=== PATIENT | female | born 1935 | race Caucasian/White ===

== ENCOUNTER 2016-10-15 14:24 | Inpatient (IN) | payer MEDICARE, OTHER, MEDICAID ==
[~2016-10-15] VITALS: Ht 151.1 cm; Wt 57.4 kg
[~2016-10-15 14:24] MED LIST: AMLO2.5T2; ASP81TEC; CALC600T85; CARV12.5 PO; CLAR10T; FURO20TA PO; LEVO50TA83; LORA-303; MAGN400T; MVI; PRO AIR HFA; QTP25T; QUET400T; TIZA4CAP; ZOC20 PO; [UNRECOGNIZED DRUG - CODE]; [UNRECOGNIZED DRUG - OTHER]; omega 3 fish oil
[2016-10-15 14:28] VITALS: BP 146/53; PULSE 91; RESP 18; O2SAT 98
--- NOTE | 2016-10-15 14:28 | ED.REPORT ---
HPI-Psychiatric Illness Date of Service Oct 15, 2016 ED Provider: Cornelio Schmid MD Patient is a 80 year old female with a history of bipolar disorder who presents to the ED via EMS from [facility] due to increasingly manic behavior for the past 72 hours, with the patient expressing suicidal ideations today. Per the reports of the Gear Milling Machine Set Up Operator at [facility], the patient has been experiencing manic behavior for the past 72 hours, which they describe as "psychotic" with auditory and visual hallucinations. She has demonstrated escalating behaviors requiring 1:1 supervision. She believes another elderly demented male the at the facility is her . Patient has also been making statements about acquiring a gun to kill herself, verbally and physically threatening staff. Staff feel that she is increasing psychotic, a danger to herself and others. They have not been able to determine an organic cause for her behavior. She also has a recent history of pneumonia on antibiotics for the past 2 days. Patient has also had bruising on her head, due to 2x recent falls. Patient is up at night, pacing the halls, with altered sleep patterns. She is refusing medications and food. Patient is uncooperative and unable to provide history. Per POLST, she is DNR with comfort measures only Nursing Notes Stated Complaint: REFUSING MEDICATION Chief Complaint: Psychiatric Complaint Nursing Notes Reviewed: Yes Allergies: Coded Allergies: NSAIDS (Non-Steroidal Anti-Inflamma (Verified Allergy, Unknown, 10/15/16) Penicillins (Verified Allergy, Unknown, 10/15/16) Sulfa (Sulfonamide Antibiotics) (Verified Allergy, Unknown, 10/15/16) Miscellaneous Medications ([omega 3 fish oil]) ([Pro Air Hfa]) INHA ([Resdosis]) DROPS AmLODIPine-Expunged Drug, Do Not Renew! (AmLODIPine-Expunged Drug, Do Not Renew! ) 2.5 Mg Tablet Aspirin-Expunged Drug, Do Not Renew! (Aspirin EC-Expunged Drug, Do Not Renew!) 81 Mg Tablet Calcium Carbonate (Caltrate 600) 600 Mg Tablet Carvedilol-Expunged Drug, Do Not Renew! (Carvedilol-Expunged Drug, Do Not Renew! ) 12.5 Mg Tablet Furosemide-Expunged Drug, Do Not Renew! (Lasix-Expunged Drug, Do Not Renew!) 20 Mg Tablet Levothyroxine-Expunged Drug, Do Not Renew! (Levoxyl-Expunged Drug, Do Not Renew! ) 50 Mcg Tablet Loratadine-Expunged Drug, Do Not Renew! (Loratadine-Expunged Drug, Do Not Renew! ) 10 Mg Tablet Lorazepam-Expunged Drug, Do Not Renew! (Lorazepam-Expunged Drug, Do Not Renew!) 1 Mg Tablet Magnesium Oxide (Magox) 400 Mg Tablet Nabumetone-Expunged Drug, Do Not Renew! (Relafen-Expunged Drug, Do Not Renew!) 500 Mg Tablet QUEtiapine-Expunged Drug, Do Not Renew! (SEROquel-Expunged Drug, Do Not Renew!) 25 Mg Tablet Quetiapine-Expunged Drug, Do Not Renew! (Seroquel-Expunged Drug, Do Not Renew!) 400 Mg Tablet Simvastatin-Expunged Drug, Choose New Med! (Simvastatin-Expunged Drug, Choose New Med!) 20 Mg Tablet Therapeutic Multivit/Minerals-Expunged Drug, (Therapeutic Multivit/Minerals- Expunged Drug,) 1 Ea Tab Tizanidine Hcl (Zanaflex) 4 Mg Capsule General Time Seen by MD: 14:28 Chief Complaint Bizarre behavior, Suicidal ideation Hx Obtained From: Telecommunications Engineer Unable to Obtain Hx: Uncooperative Arrived By: Ambulance Risk-Psychiatric Illness Suicide Risk Stratification RF Statements: Risk factors reviewed Past Medical History Past Medical History Notes: POLST: Comfort measures only Past Medical History Bipolar disorder hypothyroidism arthritis congestive heart failure Reports: Hyperlipidemia, Hypertension Past Surgical History Reports: Hysterectomy Reports: Tubal ligation Smoking History Unknown if Ever Smoker Review of Systems Unable to Obtain ROS Uncooperative Psychiatric: Reports: Change mental status, Delusional, Hallucinations, auditory, Hallucinations, visual, Suicidal ideation Physical Exam Initial Vital Signs Vital Signs (First) Date Time Temp Pulse Resp B/P Pulse Ox O2 Delivery O2 Flow Rate FiO2 10/15/16 14:28 36.4 91 18 146/53 98 Room Air Initial VS: Reviewed Neck: Supple, Full range of motion General/Constitutional: Awake, Alert, No acute distress laying in bed, pulling shirt up over her face, resistening examination Neurologic: No motor deficits, No sensory deficits moves all four extremities neurologic exam limited by the patient's unwillingness to participate Unable to Evaluate: Positive: Uncooperative (Psychiatric) Head / Eyes: Normocephalic, PERRL, EOMI ecchymosis about the right occipital scalp, no other signs of trauma ENT: Airway patent Mouth: Positive: Mucous membranes dry Respiratory / Chest: Atraumatic, Breath sounds NL, Breath sounds = bilat, No respiratory distress, No rales, No rhonchi, No wheezing Abdomen: Atraumatic, Soft, Non-tender, No distention Skin: Color NL, Warm, Dry Upper Extremity / MS: Full range of motion, No deformity good radial pulses Lower Extremity / Pelvis / MS: Atraumatic, Neurologic intact, Pelvis stable Interpretation & Diagnostics Lab Results Interpretation Result Diagram: 10/15/16 1633 10/15/16 1633 Test 10/15/16 16:33 10/15/16 16:43 White Blood Count 8.7th/mm3 (3.8-10.1) Red Blood Count 4.66mil/mm3 (3.90-5.20) Hemoglobin 13.1g/dL (12.0-15.6) Hematocrit 40.3% (35.0-46.0) Mean Corpuscular Volume 86.5fL (81-100) Mean Corpuscular Hemoglobin 28.1pg (27.0-35.0) Mean Corpuscular Hemoglobin Concent 32.5% (32.0-37.0) Red Cell Distribution Width 14.0% (12.3-15.4) Platelet Count 285bil/L (150-400) Neutrophils (%) (Auto) 52.7% (40-74) Lymphocytes (%) (Auto) 34.5% (14-46) Monocytes (%) (Auto) 11.5% (4-12) Eosinophils (%) (Auto) 1.0% (0-5) Basophils (%) (Auto) 0.2% (0-3) Prothrombin Time 11.0sec (8.1-12.5) Prothromb Time International Ratio 1.03ratio Sodium Level 142mEq/L (134-144) Potassium Level 3.3mEq/L (3.5-5.2) Chloride Level 99mEq/L (97-108) Carbon Dioxide Level 26mmol/L (18-29) Blood Urea Nitrogen 11mg/dL (8-27) Creatinine 0.51mg/dL (0.57-1.00) Estimat Glomerular Filtration Rate 167mL/min (>59) Glucose Level 107mg/dL (60-99) Lactic Acid Level 2.3mmol/L (0.4-2.0) Calcium Level 9.5mg/dL (8.5-10.1) Total Bilirubin 0.4mg/dL (0.0-1.2) Aspartate Amino Transf (AST/SGOT) 19U/L (0-50) Alanine Aminotransferase (ALT/SGPT) 11U/L (0-32) Alkaline Phosphatase 68U/L (25-165) Total Protein 7.5g/dL (6.4-8.4) Albumin 4.0g/dL (3.4-5.0) Thyroid Stimulating Hormone (TSH) 1.080uIU/mL (0.450-4.500) Urine Color Yellow (YELLOW) Urine Appearance Clear (CLEAR,HAZY) Urine pH 5.5 (5.0-8.0) Urine Specific Revere >1.030 (1.003-1.035) Urine Protein Negativemg/dL (NEG,TRACE) Urine Glucose (UA) Negativemg/dL (NEGATIVE) Urine Ketones 15mg/dL (NEGATIVE) Urine Occult Blood Negative (NEGATIVE) Urine Nitrite Negative (NEGATIVE) Urine Bilirubin Negative (NEGATIVE) Urine Urobilinogen Normalmg/dL (NORMAL) Urine Leukocyte Esterase Negative (NEGATIVE) Urine RBC 0-2/hpf (0-2) Urine WBC 0-5/hpf (0-5) Urine Epithelial Cells Occasional/hpf (NONE-MOD) Urine Crystals None seen (NONE SEEN) Urine Bacteria None/hpf (NONE-FEW) Urine Hyaline Casts None/lpf (NONE) Urine Granular Casts None seen (NONE SEEN) Urine Waxy Casts None seen (NONE SEEN) Urine Red Blood Cell Casts None seen (NONE SEEN) Urine White Blood Cell Casts None seen (NONE SEEN) Urine Mucus None seen (None Seen) Urine Trichomonas None seen (NONE SEEN) Urine Yeast None (NONE SEEN) Urinalysis Comment None Urine Culture Reflexed Not indicated Lab Results Interpretation: Urine drug screen: Positive for Opiates and Tr-cyclic antidepressants. ECG Interpretation ECG Interpretation: Sinus rhythm, Rate 88 inferior Waves present no ST segment elevation T wave inversion in the antrpseptal leads no prior EKG available for comparison Poor quality EKG Time: 16:16 Interpreted by: ED physician X-Ray Chest Interpretation Chest Xray Interpretation: IMPRESSION: Pulmonary interstitial opacities without well-defined focus of pneumonia. Superimposed edema cannot be excluded. Dictated by: Brionna Edwards M.D. on 10/15/2016 at 16:30 Approved by: Brionna Edwards M.D. on 10/15/2016 at 16:30 View: Portable Interpretation / Wet Read by: Interpret - Radiologist CT Head Interpretation IMPRESSION: 1. No acute intracranial abnormality. Dictated by: Leonel Elmore M.D. on 10/15/2016 at 16:13 Approved by: Leonel Elmore M.D. on 10/15/2016 at 16:13 Study: Head CT no contrast Interpretation / Wet Read by: Interpret - Radiologist Re-Eval/Medical Decision Med Decision/Clinical Course Patient is a 80 year old female with a history of bipolar disorder who presents to the ED via EMS from [facility] due to increasingly manic behavior for the past 72 hours, with the patient expressing suicidal ideations today. Per the reports of the Gear Milling Machine Set Up Operator at [facility], the patient has been experiencing manic behavior for the past 72 hours, which they describe as "psychotic" with auditory and visual hallucinations. Upon arrival in the room the patient is holding her shirt over her face and refuses to provide any history or persist to state and examination. The patient is afebrile with stable vital signs. I considered many organic causes of the patient's apparent behavioral disturbance. We considered major head trauma, intracranial hemorrhage, subdural hematoma, epidural hematoma, brain tumor, cerebral mass lesion, cerebral contusion or stroke. For that reason, we obtained a CT of the head which showed no bleeding or brain abnormalities. We considered electrolyte or metabolic abnormality including hepatic encephalopathy, hyponatremia, acidosis, hypokalemia, hyperkalemia, hyperglycemia, hypoglycemia, and acute renal failure. For that reason, we obtained a bedside glucose test and a metabolic panel which did not show abnormalities that explain the alteration of mental status. We considered infectious etiologies, but the patient has no fever, and the lab tests are not compatible. In addition, there is no evidence of cellulitis, pneumonia, or intra-abdominal infection. We considered toxicity of ethanol or drugs as an etiology of the alteration of mental status and we sent an ethanol concentration. The etiology of the alteration of mental status remained unclear at this point. The patient had mildly elevated lactate which I suspect is consistent with her refusing PO fluids. I have ordered an IV fluid bolus. This seems to be a large psychiatric component to this patient's presentation today. The patient is currently being evaluated by our certified social workers in health care and may require DMHP. The patient was signed out to Dr. Sheth pending further recommendations. Source of Hx: Old records Consultation : Call Returned at: 17:00 Note: Spoke with the ED LOGGING EQUIPMENT MECHANIC. Patient need to be evaluated by the DCR. Discharge & Departure Shift Change Sign-Out Patient Care Transferred: Yes Discussed Complaint(s): Yes Laboratory Evaluation: Back, reviewed by me Imaging Studies: Done, reviewed by me Additonal Information: Pending DCR evaluation Impression: Primary Impression: Suicidal ideation Additional Impressions: Manic behavior Dehydration Referrals: Bhargavi Zuniga MD (PCP) Care Transferred to: Dr. Sheth Care Transferred at: 18:00 Scribe Attestation Portions of this note were transcribed by Yudith Figueroa. I, Dr. Schmid personally performed the history, physical exam and medical decision-making; I reviewed and confirmed the accuracy of the information in the transcribed note. Signed by: Juma Lizarraga, 10/15/2016 1810 copies to: Bhargavi Zuniga MD, Beck O MD Oct 15, 2016 14:28 Yudith Figueroa Oct 15, 2016 16:11 COLTON HARRISON Oct 15, 2016 18:22
--- NOTE | 2016-10-15 16:15 | DRSVH ---
PROCEDURE: CT BRAIN WITHOUT CONTRAST ([id number]) INDICATIONS: ams TECHNIQUE: Noncontrast 4.5 mm thick angled axial sections acquired from the foramen magnum to the vertex, with c oronal reformats. COMPARISON: [facility], CT, BRAIN W/O CONTRAST, 05/08/2005, 18:56. FINDINGS: Image quality: Degraded by patient positioning factors. CSF spaces: Basal cisterns are patent. No extra-axial fluid collections. The ventricles are symmet terry in size and shape. Brain: No intracranial bleeds or masses. There is cerebral volume loss for age, with resultant vent ricular and sulcal prominence. There are periventricular and deep white matter chronic small vessel ischemic changes. There is intracranial internal carotid artery atherosclerosis. Skull and face: Calvarium and visualized facial bones appear intact, without suspicious lesions. Sinuses: Visualized sinuses and mastoids are clear. IMPRESSION: 1. No acute intracranial abnormality. Dictated by: Leonel Elmore M.D. on 10/15/2016 at 16:13 Approved by: Leonel Elmore M.D. on 10/15/2016 at 16:13
--- NOTE | 2016-10-15 16:32 | DRSVH ---
PROCEDURE: X-RAY CHEST ONE VIEW, PORTABLE ([id number]) INDICATIONS: ALTERED MENTAL STATUS TECHNIQUE: One view of the chest was acquired. COMPARISON: [facility], CR, CHEST 1 VIEW, 09/23/2016, 8:56. [facility], CR, CHEST 2VW, 07/25/2008, 9:33. FINDINGS: Surgical changes and devices: None. Lungs and pleura: There is an overall appearance of increased pulmonary vascularity and interstitial opacities. The previous more focal appearance in the right upper lobe appears less prominent when com pared to prior exam. Mediastinum: Mediastinal contours appear normal. Heart size is normal. Bones and chest wall: No suspicious bony lesions. Overlying soft tissues appear unremarkable. IMPRESSION: Pulmonary interstitial opacities without well-defined focus of pneumonia. Superimposed ed antonio cannot be excluded. Dictated by: Brionna Edwards M.D. on 10/15/2016 at 16:30 Approved by: Brionna Edwards M.D. on 10/15/2016 at 16:30
[2016-10-15 16:53] LABS: BASOPHILS % (AUTO) 0.2 % (0-3); MONOCYTES % (AUTO) 11.5 % (4-12); Mean Corpuscular Hemoglobin 28.1 pg (27.0-35.0); Mean Corpuscular Volume 86.5 fL (81-100); NEUTROPHILS % (AUTO) 52.7 % (40-74); Platelet Count 285 bil/L (150-400)
[2016-10-15 17:02] LABS: INR 1.03 ratio
[2016-10-15 17:27] LABS: APPEARANCE,URINE CLEAR (CLEAR,HAZY); COLOR,URINE YELLOW (YELLOW); OCCULT BLOOD,URINE NEGATIVE (NEGATIVE); PH,URINE 5.5 (5.0-8.0); UROBILINOGEN,URINE NORMAL (NORMAL)
[2016-10-15] MEDS ORDERED: 0.9% Sodium Chloride 1,000 ML IV ONE (18:15)
[2016-10-15] MEDS ORDERED: Haloperidol 5 mg/mL Inj IVPUSH ONE (19:55)
[2016-10-15] MEDS ORDERED: 0.9% Sodium Chloride 500 ML IV ONE (21:35)
[2016-10-15 23:05] VITALS: BP 148/75; PULSE 94; RESP 20; O2SAT 97
[2016-10-16 04:37] VITALS: BP 145/66; PULSE 88; RESP 16; O2SAT 96
[2016-10-16] MEDS ORDERED: Haloperidol 5 mg/mL Inj IVPUSH ONE (05:00)
[2016-10-16 06:23] VITALS: BP 138/61; PULSE 95; RESP 14; O2SAT 96
[2016-10-16 11:00] VITALS: BP 145/74; PULSE 79; RESP 18; O2SAT 98
[2016-10-16] MEDS ORDERED: Benzocaine-Menthol Lozenge 2/Pkg PO PRN (12:45)
[2016-10-16] MEDS ORDERED: Alum-Mag Hydrox-Simeth 30 mL Suspension PO PRN (12:45)
[2016-10-16] MEDS ORDERED: Magnesium Hydroxide 10 mL Oral Concentration PO PRN (12:45)
[2016-10-16 14:10] VITALS: BP 149/78; PULSE 76; RESP 16; O2SAT 97
[2016-10-16] MEDS: LORazepam 1 mg Tablet PO PRN (17:32)
--- NOTE | 2016-10-16 18:28 | NUR ---
[id number]. nurs. Admit note. 80 y.o. female admitted to [facility] at 1427 from [facility] ED. Pt had been evaluated and detained on a 72 hr hold as GD and D to Others 10/16/16 at 1400. Pt has been resident at [facility] and had been reported to be exhibiting increasingly manic behaviours with psychotic features with auditory and visual hallucinations, delusional re another dementia pt being her spouse, threatening verbally and physically towards staff, and making statements re. acquiring gun and killing self. Pt also recently on antibiotics for pneumonia, with bruising on head from 2 xs recent falls while ambulating erratically with walker . Pt with altered sleep pattern and refusing food fluids and medication over last 4 days. Pt treated in ED for dehydration ate 2 meals today and accepted 50mg of seroquel at 1123 in ED. On admission pt pleasant hyperverbal with confused content verbalizing delusional and paranoid ideation. Pt asked for medication and did take offered seroquel 100mg and ativan 1mg at 1732. Pt asleep at 1800. Pt wearing attends was able to ask to go to bathrm, did ,also carry out some attention to hand and tooth care. Pt's outpt CM sujata Griffin through [place] services and visited with pt on unit this afternoon mtg with [facility].
[2016-10-16] MEDS ORDERED: Albuterol 2.5 mg/3 mL Inhalation Solution NEB PRN (18:35)
--- NOTE | 2016-10-16 18:46 | NUR ---
Observations 1400 to 1999 Pt arrived on the unit at 1427 in wheelchair with security and ED staff. Pt was oriented to he unit. Pt speech and eye contact was ok. Pt remained in her room most of the shift but she did sit watching TV before going back to her room to lie down. Pt was social with staff when approached. Pt sat quietly in her wheelchair and/or rested in her room. Pt maintained behavior throughout the shift. Pt was polite pleasant and cooperative. Pt was observed every 15 minutes throughout the shift as ordered. Pt is currently in her bed and appears asleep at this time.
[2016-10-16] MEDS: hydrOXYzine Pamoate 25 mg Capsule PO PRN (23:38)
[2016-10-17] MEDS ORDERED: ALBU90AE IH (01:36)
[2016-10-17] MEDS ORDERED: QUET100T PO (01:36)
[2016-10-17] MEDS ORDERED: FEG324 PO (01:36)
[2016-10-17] MEDS ORDERED: HYDR-4003 PO (01:36)
[2016-10-17] MEDS ORDERED: CALCIUM CARBONATE (01:37)
[2016-10-17] MEDS ORDERED: CHOL200047 PO (01:37)
[2016-10-17] MEDS ORDERED: OMEG500C3 PO (01:37)
[2016-10-17] MEDS ORDERED: SIMV20TA4 PO (01:38)
[2016-10-17] MEDS ORDERED: LEVO50TA6 PO (01:43)
[2016-10-17] MEDS ORDERED: CARV12.52 PO (01:43)
[2016-10-17] MEDS ORDERED: FUR20 PO (01:43)
[2016-10-17] MEDS ORDERED: POTA10TA12 PO (01:45)
--- NOTE | 2016-10-17 05:36 | NUR ---
Noc shift 11-7 pt slept a total of 8.5 hrs, she was frequently awake after 0230 unable to stay asleep. Ambien given and pt was able to sleep some afterwards, but eventually was awake again. C/o general pain and tylenol was given and was effective. Bed alarm and q15 checks ongoing. pt was up several times after 0230, redirected pt and offered other measures like toileting and stroll down to the milieu. Pt kept requesting "I need more meds" "I want more pills" and attempted to get oob frequently. Pt was a 1PA for oob needs.
--- NOTE | 2016-10-17 05:52 | NUR ---
Pt asleep on and off through shift. Pt was confused about where she was, thought her cat as here, she had to go to the dining room. She was not able to be redirected even after multiple attempts buy different people/approaches. Pt observed every 15 minutes as ordered.
[2016-10-17 10:01] VITALS: BP 139/93; PULSE 102; RESP 18
[2016-10-17] MEDS: Calcium Carbonate (Oyster Shell) 500 mg Tablet PO SCH (10:11)
[2016-10-17] MEDS: LORazepam 1 mg Tablet PO PRN (10:14)
[2016-10-17] MEDS ORDERED: Albuterol HFA 60 Puff 8 Gm Inhaler INHALATION PRN (11:00)
--- NOTE | 2016-10-17 12:52 | NUR ---
Observations 0700 to 1300 Pt affect and mood was labile, confused, disorganized. Pt was not oriented to time and place. Pt speech and eye contact was poor. Pt remained in her room in bed most of the morning. Pt was social with staff when approached. Pt sat quietly in her wheelchair and/or rested in her room. Pt maintained behavior throughout the shift. Pt was polite pleasant and cooperative. Pt was observed every 15 minutes throughout the shift as ordered. Pt is currently eating lunch and visiting with daughter in group room.
--- NOTE | 2016-10-17 13:58 | HP ---
[address] [address] HISTORY AND PHYSICAL PATIENT: YANETH MURPHY : 1935 MR#: [id number] ADMIT: 10/16/2016 JOB ID: [id number] IDENTIFICATION OF PATIENT: The patient is a 80-year-old female who reportedly was admitted under DARLYN status due to grave disability with recent altered mental status. The patient reportedly has been seen through the emergency department twice within the past week. Initially treated for pneumonia, returned back to the facility due to a continuation of altered mental status. The patient reportedly is currently living in an assisted living program and per report the patient had significant difficulties with destructive behavior, confusion, disorientation, and threats of harm to others. CHIEF COMPLAINT: "No response." HISTORY OF PRESENT ILLNESS: As stated above, the patient is a 80-year-old female who reportedly was detained under a grave disability and danger to others. The patient reportedly is a resident at the [facility] and has been showing significant manic behaviors with psychotic features including auditory and visual hallucinations. Reportedly the patient has been verbally and physically threatening towards staff, making statements of acquiring a gun and killing both herself and others. The patient most recently was on antibiotics for pneumonia and also has had two separate falls over the past week. The patient has shown significant difficulties with disruption of sleep, refusing fluids and medications for the past four days. She reportedly was treated for dehydration in the emergency department with IV fluids. By report the patient has been seen by Dr. Ricky Mckee in the outpatient sector and there have been attempts at decreasing the doses of Seroquel from previous doses of 400 mg q.h.s. with an additional 100 mg b.i.d. Per report the patient does receive services through psychiatric trim setter Mala Griffin at [facility] and there has been confirmation that the patient is not at baseline and an affidavit indicated such. Earlier this morning the patient did have a visit from the daughter, who also identified that the patient has no history of dementia but rather has had episodes of decompensation throughout much of her life and presented as manic, psychotic, but eventually stabilized this with medications including Seroquel. I attempted to interview the patient. She was quite disoriented, confused. She had difficulties with maintaining eye contact. She mumbled throughout the course of conversation and a full mental status exam was not completeable. PAST MEDICAL HISTORY: Substantial for the above information. I reviewed other information, details through the emergency department and agree with findings. She is off of her antibiotic regimens from previous treatment for pneumonia. MEDICATIONS: Her current medications include albuterol 1 puff q.i.d. p.r.n., K-Dur 10 mEq b.i.d., vitamin D3 2000 units, Lasix 20 mg daily, Os-Damian 500 mg daily, iron 324 mg daily, Synthroid 50 mcg daily, Lipitor 10 mg q.h.s., Coreg 12.5 mg b.i.d., and Seroquel current administration of 100 mg b.i.d. She was also prescribed Percocet per previous report, which I have elected not to initiate based on her significant history of delirium. PAST PSYCHIATRIC HISTORY: Substantial for the above information. Most recent interventions provided by Dr. Ricky Sethi in August 2016. There is no identification of prior admissions to the mental health unit; however, further collaboration will be obtained through family members. SOCIAL HISTORY: Currently the patient, as noted above, lives in the [facility]. DRUG AND ALCOHOL HISTORY: Was not reviewed. ABUSE HISTORY: Not reviewed. FAMILY HISTORY: Deferred. DEVELOPMENTAL HISTORY: Deferred. MENTAL STATUS EXAMINATION: Is not completeable. The patient is essentially listless and unresponsive. IMPRESSION: [place] I: 1. Delirium, not otherwise specified. 2. Bipolar disorder, type 1, mixed type by history. 3. Rule out cognitive disorder, not otherwise specified. [place] II: Deferred. [place] III: History of recent treatment for pneumonia. [place] IV: Stressors are noted for chronic mental health issues, recent disruption of behavior. [place] V: Global Assessment of Functioning of current 20. PLAN: 1. Recommendations for continuation of all medications noted, with holding Percocet for now. 2. Recommendations for further titration of Seroquel to follow current administration of 100 mg b.i.d. 3. Collaboration of information with previous care providers.
--- NOTE | 2016-10-17 15:48 | NUR ---
Nursing: Day shift: S: Jorge Patel, (her cat), you stop that! Abdirizak and Evelyn, Now those two are a problem. Abdirizak, Abdirizak! . My mother and father are downstairs. O: Janene awoke about 10:00. Walked to BR and out to Bkft with one person assist. (Refused to use walker). Gait fairly stable but not able to be left without observation when awake due to fall history. Has mostly used WC. Nutrition; has not eaten breakfast or lunch. Has drunk water and OJ as fluids. Elimination: Pt is continent. Able to request to use toilet for BM and urine even though she is wearing a disposable brief. Up to BR x3 with assist. Hygiene; Washes hands carefully, styles own hair, brushed teeth. has not showered. At 10:45, pt was speaking in a loud, commanding voice to cat, , and daughter as she gazed forward. The rest of the day, she has spoken directly to staff or daughter, Clarissa, who visited her [phone]. Tearful at times. Takes scheduled p.o.meds as offered. PRN meds: Ativan 1 mg at 1100, with effect of somnolence until after about 1300. Gets up and out of W/C and bed when requested not to. A: Not independent for ADL's. Fall risk. Confused. Accepts directions but does not reliably comply. Nutritional deficit. P: Continue 1;1 staff observation to prevent fall. Addendum: 10/17/16 at 1842 by CATARINA MENDOZA RN Nursing: Update: In the latter half of day, Tasia has been calmer, talking to staff and peers in coherent manner. Insisted to telegraphic typewriter mechanic that a peer was her mother. She has been able to walk between room and DR with only standby assist. At dinner, ate only a couple bites. Did drink a Boost drink. A:/P: Continue to give close observation for fall risk.
--- NOTE | 2016-10-17 18:00 | NUR ---
Case Management/Counselor: S/O: Met with patient and psychiatrist. Patient slept 8.5 hours last night per staff. Patient disoriented and confused. She mumbled throughout the interview and this medical underwriter had a difficult time getting information. A: Patient is cooperative, blunted affect, disorganized, confused, no insight, no judgment. P: Follow care plan, coordinate out-patient providers.
[2016-10-18] MEDS: hydrOXYzine Pamoate 25 mg Capsule PO PRN ×3 (03:02→21:10)
--- NOTE | 2016-10-18 05:02 | NUR ---
noc shift 11-7 pt slept a total of 3.5 hrs, pt had a bed alarm with q15 min checks. She attempted to get oob several times, offered meds several times before she actually took meds. Vistaril given at 0300 and pt has since slept (0400).
--- NOTE | 2016-10-18 06:40 | NUR ---
Pt asleep on and off through shift with only a total of less than 4hrs . Pt became increasingly agitated and less redirect able throughout shift. Bed alarm on for safety. Pt observed every 15 minutes as ordered.
[2016-10-18] MEDS: Calcium Carbonate (Oyster Shell) 500 mg Tablet PO SCH (08:51)
--- NOTE | 2016-10-18 11:59 | NUR ---
Nursing Dayshift: S: "I'm talking to my , sister, and my daughter. They're in [place]. Yes, they can hear me." O: Patient noted to be very conversive in her room this AM. Made above statement to the [facility] assigned to her as a 1:1 staffing due to confusion and being a very high falls risk. patient accepted offer to use a phone and when one was brought stated "it takes too much concentration. I can't call them right now." Out of room for meals and group activities. Good appetite. Utilizing FWW for ambulation with SBA due to abnormal gait with no falls. A: Pleasant on approach. Confused. P: CPOC. Monitor mood and behavior. Continue 1:1 staffing due to confusion and high fall's risk. Addendum: 10/18/16 at 1226 by AAYUSH OLIVER RN Amended: Links added.
[2016-10-18 13:41] VITALS: BP 160/79; PULSE 82; RESP 20
--- NOTE | 2016-10-18 14:38 | PROG NOTE ---
[address] [address] PROGRESS NOTE PATIENT: YANETH MURPHY : 1935 MR#: [id number] ADMIT: 10/16/2016 JOB ID: [id number] DATE: 10/18/2016 CHIEF COMPLAINT: "I think I'm going to hell. I have done some very bad things." This per patient report. HISTORY OF PRESENT ILLNESS: As stated above, the patient did actually have a conversation with myself. She was much more alert, interactive but clearly has experienced significant difficulties with delusions. The patient reportedly identified that she believes that she has completed unforgiveable sins including murder and killing. She reports that she has asked for forgiveness but believes that she is unforgiveable. She was quite distraught throughout the course of conversations. In review of her previous medications, she indicated that she herself was cutting back on her medications and this would not authorize through Dr. Sethi and she has agreed to continue with titration of her Seroquel back to original doses of 100 mg q. a.m. and 400 mg q.h.s. I have discussed further titration today to 200 mg b.i.d. and she is agreeable. OBJECTIVE: On mental status examination, as noted above, the patient is quite distraught. She cried throughout the course of conversation. Her speech was of normal tone, frequency and volume. Her mood was depressed. Her affect was elevated. Her thought process shows no evidence of racing thoughts, flight of ideas. She is quite loose and disorganized and needs redirection throughout. Her thought content, she readily identified significant difficulties with persecution of thoughts, paranoia, delusions. She denied any auditory or visual hallucinations but this is questionable in her report. She was alert, oriented to time and place. Her attention and concentration are intact. Her memory intact in the short term, fpc, recent. Insight and judgment are fair. PHYSICAL EXAM: Vital signs are current. Temperature is 36.3, pulse 102, respirations 18, BP 139/93. MEDICATION REVIEW: Includes: 1. Potassium 10 mEq b.i.d. 2. Vitamin D3 2000 units daily. 3. Lasix 20 mg daily. 4. Iron supplement. 5. Levothyroxine 50 mcg daily. 6. Coreg 12.5 mg b.i.d. 7. Seroquel 100 mg b.i.d. as well as p.r.n.'s ASSESSMENT: AXIS I 1. Bipolar disorder, mixed type with evidence of psychoses. 2. Rule out cognitive disorder, not otherwise specified. 3. Delirium not otherwise specified, resolving. AXIS II Deferred. AXIS III 1. History of hypertension. 2. History of hypothyroidism with replacement. 3. History of chronic renal failure. AXIS IV Stressors are noted for noncompliance with medications. AXIS V Global assessment of functioning of current 40. PLANS: 1. Recommendations for titration of Seroquel to 200 mg b.i.d. 2. Recommendations for followup of potassium level to be completed tomorrow morning for recheck due to prior noted hypokalemia. 3. Continuation of record release for Dr. Ricky Mckee to review previous documentation.
--- NOTE | 2016-10-18 14:59 | NUR ---
Vacuum Conditioner Operator./ cSusanm. S./O.: met with pt. in her room. She has 1:1 sitter for safety. She was in bed resting. She didn't sleep well last night. She couldn't carry on a conversation just nodded her head as an answer on a couple of questions. She was out into Dining room for meals. She was wearing dark glasses all day. A.: pt. is quiet, selectively mute, has a flat affect, unsteady gait. P.: monitor behavior, provide safety in the unit; follow care plan.
--- NOTE | 2016-10-18 19:04 | NUR ---
Observations 0700 to 1900 Pt maintained behavioral control throughout the shift. Pt is confused, disoriented, forgetful, sad. Pt believes that another pt is her mother and seemed to think she could talk to her family in [place] by talking into the air. Pt also burst into tears a couple times during the day. "I've done so many terrible things, I've killed people." Pt believes she is "going to hell." and was comforted by talking to sitter about the bible. Pt moves well on her own with the walker, but needs redirection and observation to ensure that she uses her walker. Pt ate 75% of breakfast, 10% of lunch, and 25% of dinner. Pt was observed 1 to 1 as ordered due to concern for a falls risk.
--- NOTE | 2016-10-18 21:10 | NUR ---
Nurses PRN patient received Vistaril 50mg for anxiety and sleep,nights to assess response.
--- NOTE | 2016-10-19 05:33 | NUR ---
noc shift 11-7 pt slept most of the night, she had 1:1 sitter and q15 min checks. She was given vistaril at 2109 and that seemed to be effective this noc shift.
--- NOTE | 2016-10-19 05:57 | NUR ---
Pt asleep much of the night. Had a shower at beginning of shift. 1:1 sitter provided. Pt out on unit watching TV. Asleep at 2330-230, 330-415. Pt observed every 15 minutes as ordered.
[2016-10-19] MEDS: Calcium Carbonate (Oyster Shell) 500 mg Tablet PO SCH (08:11)
[2016-10-19 08:15] VITALS: BP 135/89; PULSE 82; RESP 16
--- NOTE | 2016-10-19 12:24 | NUR ---
Nursing Dayshift: S: "I got enough to eat. I had some applesauce with it." O: Patient c/o the turkey "couldn't eat it very well because of my teeth." Will assess patient at supper and obtain a softer meal if not able to eat. 1:1 continues due to confusion and being a high falls risk. Utilizing a wheel chair for transportation per patient choice. Pleasant on approach. Attending unit activities. Smiling during interaction. A: Pleasant. Confused. P: CPOC. Monitor mood and behavior. Addendum: 10/19/16 at 1239 by AAYUSH OLIVER RN Amended: Links added.
--- NOTE | 2016-10-19 14:48 | PROG NOTE ---
[address] [address] PROGRESS NOTE PATIENT: YANETH MURPHY : 1935 MR#: [id number] ADMIT: 10/16/2016 JOB ID: [id number] DATE: 10/19/2016 CHIEF COMPLAINT: "I think I am doing much better." This per patient report. HISTORY OF PRESENT ILLNESS: As stated above, the patient did identify that she does feel that she is doing much better today. She has been communicating with staff and interactive. She reports that she does not want to increase her medicine of Seroquel above 400 mg and I have indicated that I would plan on increasing her dose tonight to 400 mg. She reportedly has shown significant improvement with interaction this morning. She maintains good eye contact. She made no reference of believing that she was going to hell and no hyper-religion themes. OBJECTIVE: On mental status exam, she was able to track and follow conversations appropriately. She denied any evidence of current suicidal or homicidal ideation. No evidence of active hallucinations, delusions. She was alert, oriented to person, place, time, situation. Her attention and concentration are improved significantly. Her insight and judgment are gaining. PHYSICAL EXAMINATION: Vital signs are current: Temperature is 36.5, pulse 82, respirations 20, BP 160/79. MEDICATION REVIEW: Includes Seroquel 200 mg b.i.d., K-Dur 10 mEq b.i.d., vitamin D3 2000 units daily, Lasix 20 mcg daily, iron supplement, Os-Damian, Synthroid 50 mcg daily, Lipitor 10 mg q.h.s., Coreg 12.5 mg b.i.d. ASSESSMENT: Roscoe I: 1. Delirium, not otherwise specified. Resolving. 2. Bipolar disorder, mixed type by history. 3. Cognitive disorder, not otherwise specified. Roscoe II: Deferred. Roscoe III: History of hypertension, hypothyroidism, hyperlipidemia. Roscoe IV: Stressors are noted for chronic mental health issues, life transition. Roscoe V: Global Assessment of Functioning of current is 35. PLAN: 1. Recommendations for probable discharge early next week to original placement options. 2. Recommendations for continuation of all medications noted with titration of Seroquel to original doses of 200 mg q.a.m., 400 mg q.h.s.
[2016-10-19] MEDS: LORazepam 1 mg Tablet PO PRN ×2 (15:35→21:44)
--- NOTE | 2016-10-19 17:31 | NUR ---
Observations 9847-1059 Pt was awake watching TV upon start of shift. Pt had 1x1 observations throughout the day. Pt appeared restless, wanting to lay down, go into living room, and watch TV throughout the day. She often times called out for Jorge, who she said is her cat. Pt also said that her and son yesterday, and appeared extremely upset when talking about it. Pt often times did not want help from staff, asking this publications writer and others to leave the room. Pt appears tired, but did not get much rest. She attended meals, but ate very little- average of 10% of breakfast, 10% of lunch, and 20% of dinner. Pt appeared to have more mobility in the afternoon/evenings. Pt was observed every 15 minutes of shift as directed.
[2016-10-19] MEDS: hydrOXYzine Pamoate 25 mg Capsule PO PRN (21:44)
--- NOTE | 2016-10-19 22:10 | NUR ---
Nurses Note Medications Patient refused all HS medications except for 200mg of Seroquel. She remains on 1:1 for safety and support.
[2016-10-20] MEDS: Calcium Carbonate (Oyster Shell) 500 mg Tablet PO SCH (08:30)
--- NOTE | 2016-10-20 13:38 | NUR ---
Nursing; Day notes: Janene has had 1;1 for fall risk this shift. She has been up in her room and the dining room. Walks with unsteady gait but does not want to use walker. Has not needed to use W/C this shift. Able to get on and off toilet herself and is continent though she wears a brief. Offered shower but refused. Nutrition: Pt has refused brkft and lunch. Drank 120 ml juice and 60 ml water at time of accepting seroquel 200 mg this a.m. Psychotic/delusional Behavior: Talking out loud to her unseen cat. Left a cookie and water on gardenia floor for her cat. Wears tinted glasses even though it is not a bright day. Orientation: Correct for facility and date today. At 1330, complained of pain. Offered Tylenol but pt declined. A: Confused. ADL self-care for toileting is improved from Thursday. Still insufficient for feeding self/nutrition and hygiene. Not compliant with ordered meds except seroquel. P: Continue 1:1 Assist as needed for ADL's. Monitor PO intake to prevent dehydration.
--- NOTE | 2016-10-20 16:01 | PROG NOTE ---
[address] [address] PROGRESS NOTE PATIENT: JANENE MURPHY : 1935 MR#: [id number] ADMIT: 10/16/2016 JOB ID: [id number] DATE: 10/20/2016 CHIEF COMPLAINT: "Believe it or not, I did sleep very well." This is per patient report. HISTORY OF PRESENT ILLNESS: As stated above, Janene identified that she feels that she did sleep through the night. She indicated that she feels that the day has been going fairly well. She has not yet taken a shower but indicated that she was going to get assistance from her current one-to-one. She was able to maintain eye contact throughout the course of conversation. She readily identified that she is in the hospital at this time. She is hopeful that she can be discharged to [facility] shortly. She was informed that we are looking at transition of discharge within the next several days. Per staff report, conversations have been held with the outpatient case management assistant at [facility], who has expressed concern about the patient's continuation of psychoses. Evidently, the patient had refused medications last evening as well as this morning in the presence of the case management assistant. This will be addressed later with me and the patient, the need to comply with medications. Her court date is up tomorrow and consideration of voluntary admission with consent will be filed. MENTAL STATUS EXAMINATION: She was cooperative, casually dressed in scrub attire. She maintained good eye contact throughout. Her speech was slow but progressive and coherent. Her mood was neutral. Her affect was congruent. Her thought process showed some evidence of tangential speech. She appeared to be somewhat loose, disorganized, but was redirectable. She denied any evidence of current suicidal, homicidal ideation. There was a mild degree of paranoia and suspicion. No evidence of active hallucinations. However, there is questionable delusional belief with open identification that her just yesterday. She was alert, oriented to place. Time, and situation were off. Her insight and judgment are deemed poor. PHYSICAL EXAMINATION: VITAL SIGNS: Current temperature is 36.5, pulse 81, respirations 16, BP 115/89. MEDICATION REVIEW: Includes: 1. Seroquel 200 mg q.a.m., 400 mg q.h.s. 2. Albuterol 1 puff q.4 h. p.r.n. 3. K-Dur 10 mEq b.i.d. 4. Vitamin D3 2000 units daily. 5. Lasix 20 mg daily. 6. Iron 324 mg b.i.d. 7. Levothyroxine 50 mcg daily. 8. Lipitor 10 mg q.h.s. 9. Coreg 12.5 mg b.i.d. 10. P.r.n. doses of Ativan and Seroquel. ASSESSMENT: Velpen I. 1. Bipolar disorder, mixed type. 2. Cognitive disorder, not otherwise specified. 3. Delirium, not otherwise specified, resolving. Velpen II. Deferred. Velpen III. History of hypertension, chronic obstructive pulmonary disease, hyperlipidemia, and recent status of pneumonia. Velpen IV. Velpen V. Current 35. PLAN: 1. Recommendations for clarification with patient of the need to cooperate with medication interventions. 2. Recommendations for proceeding into voluntary admission will be proposed to the patient. However, there is limited information to force an DARLYN with MR14. 3. Continuation of discharge planning with discussion of return back to [facility] and continuation of outpatient services.
--- NOTE | 2016-10-20 18:37 | NUR ---
Observations [id number] Pt was asleep upon start of shift with 1x1 observations due to fall risk. Pt appears to not get much sleep and attended all meals, but eating a very small amount, average of 20% for the day. Pt walked back and forth from TV area to room much of the day, and walked the halls in the evening. Pt at times had to be reminded to use walker. Pt is fixated on her cat, Jorge, who she believes to be living under her bed. Pt would call out for Jorge many times throughout the day. Conversation is hard to track and follow. Pt was agitated by staff at times, demanding for them to "get away from her." Pt was observed by 1x1 observation throughout duration of shift.
--- NOTE | 2016-10-20 19:37 | NUR ---
Nursing: Janene has been increasingly calm and cooperative as the shift progressed. Initially at 0930, she refused her medications but by 1000, she was willing to accept Seroquel 200 mg and Synthroid. Has had 1:1 throughout shift due to her fall risk. Still unsteady gait but is willing to use walker at times. Was able to use commode independently for toileting today. Refused offer of assistance with shower. Talking to cat aloud during day. Left water and cookie on floor for her cat. During afternoon, signed voluntary admission form and received voluntary inpatient rights. A: Delusional. Confused at times and yet oriented at times. labile mood between telling staff to get out of room and commenting how sweet staff is. Partially med compliant. P: Continue to assess for effect of antipsychotic.
--- NOTE | 2016-10-21 03:43 | NUR ---
Observations 1900 to 0700 Pt was in the dr for most of the night until she went to bed. Pt first appeared asleep at 21:30 and was observed by a one to one as directed.
[2016-10-21] MEDS: HYDROcodone-APAP 5-325 mg Tablet PO PRN ×2 (05:35→10:54)
--- NOTE | 2016-10-21 06:03 | NUR ---
Nursing Noc Pt continues with 1:1 sitter due to confusion and risk of falls. Uses FWW for ambulation. Pt wanders around the unit watching tv at times. Needs frequent redirection. Cooperative with care. Took scheduled medication tonight. She had improved sleep tonight sleeping from 1436-1406. She c/o of pain rated 8/10. Pt tearful and asked for something stronger than Tylenol. She receives [facility] and requested this for her pain. Doctor Rafi called and order obtained. She received 1 tab @ 3172. Pt currently resting in bed but not sleeping. Total sleep 7.5 hours.
[2016-10-21] MEDS: Calcium Carbonate (Oyster Shell) 500 mg Tablet PO SCH (08:30)
[2016-10-21 08:40] VITALS: BP 94/55; PULSE 76; RESP 16
--- NOTE | 2016-10-21 14:59 | PROG NOTE ---
[address] [address] PROGRESS NOTE PATIENT: YANETH MURPHY : 1935 MR#: [id number] ADMIT: 10/16/2016 JOB ID: [id number] DATE: 10/21/2016 CHIEF COMPLAINT: "I thought I was at the [facility]." This per patient report. HISTORY OF PRESENT ILLNESS: As stated above, the patient met with myself this morning. She indicated that she is having a difficult day. She did not give any descriptives. She evidently just ate a bowl of fruit and was encouraged to increase her caloric intake by myself with an agreement to have some oatmeal. She reportedly assigned in on a voluntary basis yesterday, but clearly continues to have difficulties with cognitive impairment. She was disoriented to place. She had difficulties with time and situation. She identified that she believes that she is in [facility]. She previously per nursing staff report, has been speaking to her imaginary cat and calls by name. She reportedly has been in contact with her daughter who visited yesterday, but will be gone over the next several days. Plan and intent to pursue return to the [facility] with further support and assistance based on the patient's developing dementia, has been discussed with the treatment team. MENTAL STATUS EXAMINATION: She was casually dressed, disheveled. She made intermittent eye contact. She did have a shower this morning. Her speech is of slow tone, slow momentum, paucity throughout. Her mood is described as neutral and her affect is blunted. Her thought process shows evidence of loose and disorganized thinking. No evidence of racing thoughts. She was alert, oriented to time and place. Her attention and concentration are poor. Insight and judgment are poor. PHYSICAL EXAM: Vital signs of current: Temperature is 36.5, pulse 82, respirations 16, BP 135/89. MEDICATION REVIEW: Includes: 1. Seroquel 200 mg q.a.m., 400 mg q.h.s. 2. Lipitor 10 mg q.h.s. 3. Coreg 12.5 mg b.i.d. 4. Vitamin D3, 2000 units. 5. Iron 324 mg daily. 6. Lasix 20 mg daily. 7. Kayenta which will be discontinued based on significant evidence of delirium . 8. Synthroid 50 mcg daily. 9. Ativan 1 mg q.4 h. p.r.n. which we discontinued based on significant fall risk and confusion. 10. K-Dur 10 mEq b.i.d. 11. Seroquel 50 mg q.4 h. p.r.n. for agitation. ASSESSMENT: AXIS I: 1. Cognitive disorder, NOS. 2. 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 3. Bipolar disorder, mixed type by history. AXIS II: Deferred. AXIS III: 1. History of hypertension. 2. History of hyperlipidemia. 3. History of hypothyroidism. AXIS IV: Stressors are noted for transition of life, ongoing inadequacy of self-care. PLAN: 1. Recommendations for discontinuation of Ativan and Kayenta based on significant fall risk and further difficulties with confusion. 2. Recommendations for planned return to [facility] for continuation of stabilization and interventions. 3. Recommendations for followup care to be discussed with the family and guardianship including applications for memory care centers and advanced care.
--- NOTE | 2016-10-21 15:17 | NUR ---
Kiln Charger./ c.m. S./O.: pt. continued having 1:1 for fall risk. She had a visit with her c.m. Mala Griffin yesterday in the morning. Mala said that pt. would be able to come back to [facility] in [place] if she is feeling well and stable. Mala will coordinate this transition. Housekeeper Nanny explained to Mala pt.'s meds and a reason for some of pt.'s behavior. Mala was insisting on 14 MRO but pt. signed vol paper yesterday. Housekeeper Nanny spoke with pt.'s daughter/guardian about pt.'s condition and treatment plan. Pt.'s daughter will go back home for 2 days and that she will be back here. She can be reached on her phone any time in a case of emergency. A.: pt. is cooperative, quiet, confused at times. P.: monitor behavior, provide safety; follow care plan.
--- NOTE | 2016-10-21 16:43 | NUR ---
Nursing: Day shift: S: "You can have this." (Offered a "gift" of some clothes to another pt who she thinks is her mother). O: Tasia is able to independently use the commode, use her walker to ambulate to the dining room from her room, and drink fluids as offered. Has only taken a few bites from breakfast and lunch tray. Did ingest ensure for nutrition. Refuses shower. One to one direct supervision was discontinued at 1000. A: Improved in mobility, nutrition, and toileting. Becoming more familiar and comfortable on unit. Able to manage with unit staff and bed alarm for safety. Fall risk still in place. P: Continue to observe closely
--- NOTE | 2016-10-21 18:11 | NUR ---
Observations [id number] Pt was asleep upon start of shift. Pt attended all meals, eating an average of 25%. Pt did drink an ensure and had plenty of liquids throughout the day. Pt requested to use the phone to call daughter, and after talking with her was noticeably upset. This lyric writer asked what she was upset about, but pt stated that "it's hard to explain." Pt sat in dining area and in her room. She gathered belongings to give to another patient, whom she stated was "her mother who she hasn't seen in a long time." Pt appears more mobile, using walker and getting around better then previous day. Pt was observed every 15 minutes of shift as directed.
--- NOTE | 2016-10-22 02:49 | NUR ---
Observations 1900 to 0700 Pt was in the dr for most of the night until she went to bed. Pt first appeared asleep at 21:45 and was observed by a one to one as directed.
--- NOTE | 2016-10-22 04:54 | NUR ---
Nursing Note [id number] Pt using walker independently, BA on for safety. Pt had lidya snack in milieu and went to bed shortly after. Pt was compliant with some of her HS meds and refused the rest. Pt noted asleep 5 and has had broken sleep throughout the night. Q15 min safety checks done per protocol, no distress noted, WCTM sleep, behavior, safety
[2016-10-22] MEDS: Calcium Carbonate (Oyster Shell) 500 mg Tablet PO SCH (09:07)
--- NOTE | 2016-10-22 12:01 | PROG NOTE ---
[address] [address] PROGRESS NOTE PATIENT: YANETH MURPHY : 1935 MR#: [id number] ADMIT: 10/16/2016 JOB ID: [id number] DATE: CHIEF COMPLAINT: "You know my mother is a patient here." This is per patient report. HISTORY OF PRESENT ILLNESS: As stated above, the patient identified that she believes that her mother, another client, was admitted on the unit last evening. She reports that she feels that she is here to check in on her. She was quite disoriented and confused. She reportedly had agreed to administration of medications this morning but refused her administration of Lipitor last evening. She continues to wax and wane with her orientation, ability to function. Discussion has been held with family members of the need to proceed into further assistance including utilization of [facility] workers and long-term strategic planning of advancement into a memory care facility. She remains on all medications as previously prescribed, and I do not see any reason to alter. OBJECTIVE: On mental status exam, she was somewhat confused to person, place and time. She was otherwise cooperative. She was seen in a wheelchair being escorted by one-to-one. Her speech is soft, monotonic and tangential in its nature. Her mood is notably neutral. Her affect was congruent. Her thought process showed no evidence of racing thoughts. She continues to be loose and disorganized. Her thought content, there has been no evidence of suicidal or homicidal ideation. She denies any evidence of hearing voices but evidently has a delusional belief that her mother has been admitted to the unit. She was alert. Orientation was off in all quadrants. Insight and judgment are deemed poor. PHYSICAL EXAMINATION: All vital signs are current. Temperature is 36.4, pulse 76, respirations 18, BP 94/75. MEDICATION REVIEW: Includes: 1. Seroquel 200 mg q.a.m. and 400 mg q.h.s. 2. Potassium 10 mEq b.i.d. 3. Vitamin D3, 2000 units. 4. Lasix 20 mg daily. 5. Iron 324 mg daily. 6. Synthroid 50 mcg daily. 7. Lipitor 10 mg q.h.s. 8. Coreg 12.5 mg b.i.d. 9. P.r.n. doses of Seroquel. ASSESSMENT: AXIS I 1. Dementia, not otherwise specified. 2. Bipolar disorder, mixed type by history. AXIS II Deferred. AXIS III 1. History of hypertension. 2. Hypothyroidism. 3. Hyperlipidemia. AXIS IV Stressors are noted for long-term treatment planning including access of memory care. PLAN: 1. Recommendation is for continuation of all medications noted. 2. Discontinuation of Vistaril due to possible anticholinergic response. 3. Continuation of one-to-one assistance.
[2016-10-22 13:48] VITALS: BP 142/89; PULSE 106; RESP 16
--- NOTE | 2016-10-22 14:33 | NUR ---
Activities Leader: Manager Of Photography met with Mala Griffin the patient's CM who reported that [facility] would be willing to take the patient back once stabilized. Mala stated that she still would like the patient detained for 14 days. The patient continues on 1:1 for precautionary falls risk.
--- NOTE | 2016-10-22 16:58 | NUR ---
Nursing Dayshift: S: "Are you sure I didn't get all of my pills?" O: Patient concerned about getting all of her meds today. Has accepted all scheduled meds and some prns for pain and anxiety. Tylenol 650 mg at 1505 without effectiveness and Seroquel 50 mg given at 1300 with fair effective relief of anxiety. Has been getting around the unit in a wc with staff assistance. Pleasant on approach. Eating around 20% of meals. Watched TV with a similar aged peer this afternoon. A: Flat. Quiet. Forgetful. P: CPOC. Monitor mood and behavior.
--- NOTE | 2016-10-22 17:41 | NUR ---
[facility] Day Shift Pt remains on 1:1 sitter status due to pt fall risk and ADL assist. Pt maintained behavioral control throughout the shift. Pt affect appears mostly flat. Pt spends most of the shift resting quietly in her room or sitting quietly in the dining room. Pt becomes progressively nonsensical as the shift progresses. Pt appears to have difficulty maintaining focus throughout the shift. Pt attended all meals and ate approx 0-10% of all meals.
--- NOTE | 2016-10-23 03:49 | NUR ---
Pt sitting in milieu upon arrival to unit. Pt spent most of shift in WC and c/t be confused and looking for the cat. Pt took all HS meds except her statin medication. Pt went to bed shortly after lidya snack and meds and was noted asleep 2200. Pt slept 2 hr uninterrupted and awoke 0030 with c/o pain and stated "I don't want Tylenol it makes me sick. Encouraged Tylenol and snack and pt accepted. Pt has had on and off sleep since. Q 15 min safety check per protocol and pt has BA on for safety. WCTM sleep, safety, behavior
--- NOTE | 2016-10-23 05:15 | NUR ---
Pt up and down through shift. Confused but pleasant. Asleep [id number]. Pt observed every 15 minutes as ordered.
[2016-10-23] MEDS: Calcium Carbonate (Oyster Shell) 500 mg Tablet PO SCH (08:11)
[2016-10-23 09:00] VITALS: BP 149/85; PULSE 68; RESP 16
--- NOTE | 2016-10-23 11:53 | PROG NOTE ---
[address] [address] PROGRESS NOTE PATIENT: YANETH MURPHY : 1935 MR#: [id number] ADMIT: 10/16/2016 JOB ID: [id number] DATE: 10/23/2016 CHIEF COMPLAINT: "I was wondering if I can get one of my pain pills back." This per patient report who she requested in the presence of her daughter. HISTORY OF PRESENT ILLNESS: As stated above, the patient did discuss at length with myself her request to an re-initiate doses of Percocet which had been previously prescribed. I have actually withheld this medication due to concerns of further disorientation, confusion, and the daughter openly identified that in the past she has seen a direct correlation with her mother. The daughter was in full support of no further prescriptions that only tend to aggravate the patient's difficulties. I did discuss at length with the daughter my impression of the patient at this time that she is at baseline. I have also discussed that I do feel that the most appropriate advances of care is to return to [facility] where long-term disposition, planning including looking at the memory care centers due the patient's significant presentations of dementia. I do not feel that the patient would benefit from continued hospitalization on the mental health center and feel that she is prepared and willing to actually take all of her medications while in care at the [facility]. I have documented with review with that she has been medication cooperative over the past several days and this was affirmed with the daughter. There have been noted calls from Mala Griffin, the patient's current director of casework services in the outpatient setting, and I have also placed a voicemail along with Marian confirming that the patient is scheduled to be discharged tomorrow. OBJECTIVE: On mental status examination, she was cooperative, polite. She was oriented to place and time. She recalled my name specifically. Her speech was of normal tone, frequency and volume. Her mood and affect were stable. She denied any evidence of current suicidal or homicidal ideation. There was no evidence of active hallucinations. She continues to have random episodes of disorientation and believes that she is petting her cat. She is alert, oriented to situation, place and person. Her attention and concentration are fleeting. Insight and judgment are deemed poor. PHYSICAL EXAMINATION: Vital signs are current. Temperature is 36.4, pulse 106, respirations 18, BP 142/89. MEDICATION REVIEW: Includes: 1. Seroquel 200 mg q. a.m., 400 mg q.h.s. 2. K-Dur 10 mEq b.i.d. 3. Vitamin D3 2000 units daily. 4. Lasix 20 mg daily. 5. Os-Damian 500 mg daily. 6. Iron 325 mg daily. 7. Synthroid 50 mcg daily. 8. Lipitor 10 mg q.h.s. 9. Coreg 12.5 mg b.i.d. 10. Albuterol inhalers. ASSESSMENT: AXIS I 1. Dementia, not otherwise specified. 2. Bipolar disorder, mixed type by history. 3. Delirium, not otherwise specified, resolved. AXIS II Deferred. AXIS III History of iron deficiency anemia, hypothyroidism, hyperlipidemia, hypertension, chronic obstructive pulmonary disease. AXIS IV AXIS V Global assessment of functioning of current 45. PLAN: 1. Recommendations to discharge to the [facility] tomorrow. 2. Continuation of all medications noted.
--- NOTE | 2016-10-23 18:08 | NUR ---
Nursing Dayshift: S: "I'm not going to take that one." O: Patient repeatedly declined the oyster calcium tablet even though she agreed to after explanation it went with the vitamin D3 about 4 times. Eventually took the med. Has been out in her room a good amount of the shift. Her daughter visited for awhile this AM. Social with peers. A: Pleasant with staff. Some forgetfulness. P: CPOC. Monitor mood and behavior.
--- NOTE | 2016-10-23 18:51 | NUR ---
[facility] Day Shift Pt remains on 1:1 sitter status due to pt fall risk and ADL assist (though staff was unable to procure a consistent 1:1 for the shift, core staff provided close monitoring). Pt maintained behavioral control throughout the shift. Pt affect appears mostly flat. Pt spends most of the shift resting quietly in her room or sitting quietly in the dining room. Pt becomes progressively nonsensical as the shift progresses. Pt appears to have difficulty maintaining focus throughout the shift. Pt attended all meals and ate approx 10-30% of all meals.
--- NOTE | 2016-10-23 23:07 | NUR ---
Nurses Note Medications Patients' HS medications were withheld as she was soundly asleep and had not been sleeping well for days. shift engineer to assess if awake and medications are required.
--- NOTE | 2016-10-24 03:30 | NUR ---
Nursing Noc Pt awoke around 2300 and ambulated around unit for exercise and ADLs. Pt accepted HS prescribed medications at that time and went back to sleep. 1:1 sitter in use for safety and assist with ADL. Continuing to monitor sleep time, mood, emotional state and medication compliance. BHCP Possible discharge today back to [facility].
--- NOTE | 2016-10-24 04:02 | NUR ---
Pt up and down through shift. Confused but pleasant. Asleep [id number]. 1:1 sitter for safety. Pt observed every 15 minutes as ordered.
[2016-10-24] MEDS: Calcium Carbonate (Oyster Shell) 500 mg Tablet PO SCH (08:37)
--- NOTE | 2016-10-24 14:25 | PROG NOTE ---
[address] [address] PROGRESS NOTE PATIENT: YANETH MURPHY : 1935 MR#: [id number] ADMIT: 10/16/2016 JOB ID: [id number] DATE: 10/24/2016 CHIEF CONCERN: "I am doing okay." This is per patient report. HISTORY OF PRESENT ILLNESS: As stated above, the patient identified to myself this morning that she feels that she is doing okay on the unit. She indicates that she slept fairly well. She reportedly has been cooperating with medication interventions. Per case sealerretail planning manager yesterday, there was no call back in reference to a planned discharge and the requirement that the nurse would need to assess the patient on the unit prior to return to [facility]. This morning I did receive a phone call from Phoebe, the health care coordinator at [facility], who indicated that the [facility] [place] was requesting a formalized interview with their nursing staff, as well as at telephone call contact with myself, as of the current time of 1:50 p.m. I have not received a call back, and I have discussed with the treatment team that more than likely, this would verify that they have no intent to receive the patient until early next week. OBJECTIVE: On mental status exam, the patient was cooperative, polite. She maintained good eye contact. She continues to be somewhat tangential but is redirectable and has been very pleasant. Her speech is of normal tone, frequency and volume. Her mood was neutral. Her affect was congruent. Her thought process showed evidence of some difficulties with loose and disorganization but she is redirectable. She was expressing no evidence of suicidal or homicidal ideation, intent, or plan. There was no evidence of paranoia. No evidence of active hallucinations or delusions. She was alert, oriented to place only. She recalled my name quickly on interaction. Her attention and concentration were intact. Her memory is fluctuant. Her insight and judgment are fair. PHYSICAL EXAMINATION: Vital signs are current. Temperature is 36, pulse 68, respirations 16, BP 149/85. MEDICATION REVIEW: Includes Seroquel 200 mg and 400 mg, and the rest of scheduled doses of medications as prior noted. ASSESSMENT: AXIS I 1. Dementia, not otherwise specified. 2. Bipolar disorder, mixed type, by history. 3. Delirium, not otherwise specified, resolved. AXIS II Deferred. AXIS III None. AXIS IV Stressors are noted for chronic mental health issues, disposition planning. AXIS V Global Assessment of Functioning current 40. PLAN: 1. Recommendation is for continuation of all medications noted. 2. Recommendation is for no further interventions of pain medications, which have been discontinued during the course of hospitalization. It is to be noted that the patient more than likely was having lapses of confusion and disorientation as related to such. 3. Recommendation is for return to the [facility] once coordinated with the intake division, as well as case management, to follow.
--- NOTE | 2016-10-24 18:02 | NUR ---
Nursing Dayshift: S/O: Patient has been out of her room a good amount of the shift. 1:1 with patient for safety due to high falls risk and assistance with ADL's. 15 - 20% consumed at meals. States the food is good. Watching TV at times with peers. A: Quiet. No complaints. Med compliant. P: CPOC. Monitor mood and behavior.
[2016-10-24 21:54] VITALS: BP 131/72; PULSE 79; RESP 16
--- NOTE | 2016-10-25 05:21 | NUR ---
Nursing Noc Patient remains pleasantly confused, 1:1 sitter in use at all times r/t fall risk and need with ADLs such as changing position and ambulating to BSC. Noted poor sleep this shift. Enjoyed snacks this evening.
--- NOTE | 2016-10-25 05:34 | NUR ---
Pt up and down through shift. Confused but pleasant. Asleep [id number]. 1:1 sitter for safety. Pt observed every 15 minutes as ordered.
[2016-10-25] MEDS: Calcium Carbonate (Oyster Shell) 500 mg Tablet PO SCH (09:11)
--- NOTE | 2016-10-25 13:06 | PCM.PNPSY ---
Subjective Date of Service Oct 25, 2016 Subjective I spent 30 minutes both reviewing treatment plan and providing supportive/ educational psychotherapy. I spent more than 50% of the time counseling the patient. I reviewed the treatment plan with the patient and discussed options available however the patient was only minimally able to participate in this discussion due to cognitive delay. Janene reports that she feels fine now and would like to go home. Staff reports that she has been cooperative and participating well in one-to-one activities. She slept 0 hours at night however I observed client sleeping frequently during the day. She denies medication side effects. Patient was not able to identify her medications nor what they were used to treat. She did not appear to understand the need for medications by the questions she asked during our discussion. Current Medications Current Medications Ondansetron HCl 4-8 MG Q4H PRN PO Last administered on 10/25/16t 10:34; Admin Dose 8 MG; Start 10/25/16 at 10:35 Mental Status Exam Appearance: Neat/well groomed Attitude: Pleasant, Cooperative Behavior: No unusual behavior Affect: Well Modulated/Appropriate Mood: Euthymic Thought Process/Associations: Goal Directed, Tangential Speech Production: Normal Speech Rate: Normal Speech Articulation: Normal Thought Content: Appropriate Danger to Self/Suicidal Ideati: None Danger to Others: None Consciousness: Alert Orientation: Person, Place Attention/Concentration & Cogn: Impaired Insight: Limited Judgement: Limited Result Diagram: 10/19/16 0949 Mental Health Plan [place] AXIS I 1. Dementia, not otherwise specified. 2. Bipolar disorder, mixed type, by history. 3. Delirium, not otherwise specified, resolved. AXIS II Deferred. AXIS III None. AXIS IV Stressors are noted for chronic mental health issues, disposition planning. AXIS V Global Assessment of Functioning current 40. Medications Treatments PLAN: 1. Recommendation is for continuation of all medications noted. 2. Recommendation is for no further interventions of pain medications, which have been discontinued during the course of hospitalization. It is to be noted that the patient more than likely was having lapses of confusion and disorientation as related to such. 3. Recommendation is [facility] once coordinated with the intake division, as well as case management, to follow. Per Mckee MD Oct 25, 2016 13:06
[2016-10-25 14:28] VITALS: BP 133/73; PULSE 77; RESP 20
--- NOTE | 2016-10-25 17:50 | NUR ---
Nursing Notes [id number] S: Patient whispering so Dr Mckee would not hear. There isnt anything there (in her AM medications) for pain is there? Spelling in a whisper [id number], I cant take-you wouldnt believe the extraordinary consequences. O: Patient began having nausea/vomiting @ about 10:15 this AM. Zofran administered PO. Patient insisting she had Tylenol this morning and that is the reason for her nausea. Patient reassured that no Tylenol was given. A: Patient appears pleasantly delusional. Cooperative. P: Patient continues to have 1:1 sitter due to falls risk. Monitor for safety and response to treatment. Follow plan of care. Addendum: 10/25/16 at 1750 by BRETT PERKINS RN PRNs Zofran 8 mg po @ 10:30 for nausea/vomiting. Not effective-patient again developed nausea with vomiting @ 11:15. No further nausea or vomiting this shift.
[2016-10-25] MEDS ORDERED: Pantoprazole 40 mg ER24 Tablet PO PRN (22:30)
--- NOTE | 2016-10-26 00:07 | NUR ---
OBSERVATIONS 0900 TO 2130 Pt was on a one-to-one throughout the day. Pt was spent most of the day in room. Pt vomited following each meal of which she ate very little. Pt vacillates between attributing illness to being or to a staff member who is a "carrier." Pt is delusional, believes she has a kitten in her room she needs to feed. Pt did not attend any groups throughout the day.
--- NOTE | 2016-10-26 06:11 | NUR ---
Nursing Noc Patient with 1:1 sitter at all times. Attempts to change position independently but appears unsteady, Remains pleasanty confused and directable this shift. Reported GI discomfort yesterday, received new medication order for Protonix with reported GI upset. Continuing to monitor, mood, behavior, mental status, emotional state and sleep times. 1:1 sitter in use.
[2016-10-26] MEDS: Calcium Carbonate (Oyster Shell) 500 mg Tablet PO SCH (09:25)
[2016-10-26 10:30] VITALS: BP 104/59; PULSE 73; RESP 16
--- NOTE | 2016-10-26 12:22 | NUR ---
DAYS 7-7 S/O-Patient appears confused and unsteady on feet. Patient state "You are on thin ice" but when asked to explain statement tlked about childhood skating then spoke of hair length. Not eating much and c/o abdominal discomfort. A- 1:1 sitter at times, reoriented to place and time, denies nausea today. P- Possible medication changes for discomfort. Safety concerns and precautions. Discharge Thursday if placement is approved.
--- NOTE | 2016-10-26 12:43 | PCM.PNPSY ---
Subjective Date of Service Oct 26, 2016 Subjective I spent 10 minutes both reviewing treatment plan and providing supportive/ educational psychotherapy. I reviewed the treatment plan with the patient and discussed options available however the patient was only minimally able to participate in this discussion due to cognitive delay. Janene reports that she feels fine now and would like to go home. Staff reports that she has been cooperative and participating well in one-to-one activities. She slept 8 hours at night . She denies medication side effects. Current Medications Current Medications Ondansetron HCl 4-8 MG Q4H PRN PO Last administered on 10/25/16t 10:34; Admin Dose 8 MG; Start 10/25/16 at 10:35 Mental Status Exam Appearance: Neat/well groomed Attitude: Pleasant, Cooperative Behavior: No unusual behavior Affect: Well Modulated/Appropriate Mood: Euthymic Thought Process/Associations: Goal Directed, Tangential Speech Production: Normal Speech Rate: Normal Speech Articulation: Normal Thought Content: Appropriate Danger to Self/Suicidal Ideati: None Danger to Others: None Consciousness: Alert Orientation: Person, Place Attention/Concentration & Cogn: Impaired Insight: Limited Judgement: Limited Mental Health Plan [place] AXIS I 1. Dementia, not otherwise specified. 2. Bipolar disorder, mixed type, by history. 3. Delirium, not otherwise specified, resolved. AXIS II Deferred. AXIS III None. AXIS IV Stressors are noted for chronic mental health issues, disposition planning. AXIS V Global Assessment of Functioning current 40. Medications Treatments PLAN: 1. Recommendation is for continuation of all medications noted. 2. Recommendation is for no further interventions of pain medications, which have been discontinued during the course of hospitalization. It is to be noted that the patient more than likely was having lapses of confusion and disorientation as related to such. 3. Recommendation is [facility] once coordinated with the intake division, as well as case management, to follow. Per Mckee MD Oct 26, 2016 12:43
--- NOTE | 2016-10-26 16:25 | NUR ---
Drawer Liner./ c.m. S.:"I really enjoy looking out the window. I have a good view." O.: met with pt. in her room. She walked to the window and was looking at trees and commenting on what she saw there. She said that she enjoyed looking at birds, libby and trees. She talked about [facility] and how much she appreciated care over there. She slept "so-so, not great because of pain." She complained about pain in her hands "because of arthritis". She also asked to loosen her hospital bracelet a little because it was "too tight." She denied SI/HI, denied AH/VH, denied depression - "not really". She denied anxiety at that time. She felt good walking with a walker - "It helps me a lot and I can walk everywhere". She was walking steadily and comfortably in her room while nobody was around. She said that she felt better every day but her daughter doesn't ask her about it every day. She was hoping to go back to the [facility] very soon. A.: pt. is cooperative, pleasant, looks steady on her feet. She was clear in her thoughts. P.: monitor behavior, follow care plan.
[2016-10-26] MEDS: Pantoprazole 40 mg ER24 Tablet PO SCH (17:30)
--- NOTE | 2016-10-26 18:06 | NUR ---
Obs Dayshift Pt spent much of the shift in her room, sitting up in the wheelchair. Short, napping through out the day. Pt is feeding her cat, takes a little bit of her meals into her room and tries to get "Jorge" to come out from under her bed. Often is heard talking to her cat also. Pt is confused, mostly polite, calm, delusional. Very forgetful, often leaves her walker random places and walks away. Still has a 1:1 sitter for fall risk. Very small appetite, Ok ADL's w/ assistance.
[2016-10-27 06:30] VITALS: BP 145/81; PULSE 81; RESP 16
--- NOTE | 2016-10-27 06:56 | NUR ---
Nursing 7p-7a Pt with 1:1 sitter for falls risk. She continues pleasantly confused needing assistance up to bathroom and while ambulating on the unit. Took scheduled medication without difficulty. No emesis this shift. Broken sleep of 4.25 hours.
[2016-10-27] MEDS: Calcium Carbonate (Oyster Shell) 500 mg Tablet PO SCH ×2 (08:29→09:38)
--- NOTE | 2016-10-27 10:10 | NUR ---
Refusing morning medications P: Pt. refused morning medications. She stated,"I know my medications, I will be fine without them for a day or two." I: Encouraged pt. to take her medications and explained to her why and what she takes. E: Pt. was adamant about she is not going to take her medications today. A different nurse approached her in the late morning regarding her morning medications. This time, pt. took all her medications.
[2016-10-27 10:21] VITALS: BP 145/81; PULSE 81; RESP 16
--- NOTE | 2016-10-27 15:24 | NUR ---
Obs Dayshift Pt has been pleasantly forgetful, and delusional. Pt spends some time out in the milieu but mostly sitting in her chair in the corner of her room. Pt came out to watch some TV because her "cat was out playing under the tables". Pt is engaging w/ peers when approached, not tracking well. Pt is often taking short naps where ever she is sitting at the moment. Ok ADL's, Ok to poor meals - 25% on average, mostly just snacking or sneaking food to her room to place on the floor for her cat, Jorge.
--- NOTE | 2016-10-27 17:19 | NUR ---
Forklift Truck Operator./ c.m. S.:"Every day I feel better and better." O.: met with pt. and MD together in pt.'s room in the morning. She was in bed resting without her dark glasses. "I can't see in them, it is too dark." She slept "good" last night. She denied SI/HI, denied depression, denied AH. She said that her appetite was "soaring" and she was eating "too much". She was hoping to go to the [facility] [place] tomorrow. She was walking with her walker in the room and outside her room. A.: pt. is cooperative, pleasant, quiet. P.: monitor behavior, contact [employer] about possible discharge tomorrow; follow care plan.
[2016-10-27] MEDS: Pantoprazole 40 mg ER24 Tablet PO SCH (17:30)
--- NOTE | 2016-10-27 17:37 | NUR ---
Emesis Pt. had 2 emesis today. First emesis (food particles) was after breakfast. She had another emesis (saliva) before dinner. Pt. declined RC Rodriguez both times. Addendum: 10/27/16 at 1743 by AYANA SOTO RN Pt. refused her Protonix and Ferrous Gluconate at dinner time. She stated, "Honey, I don't want any pills today. I told the doctor, I'm going to fast today." Addendum: 10/27/16 at 1748 by AYANA SOTO RN Pt. changed her mind. She wants her "Iron pill". Ferrous Gluconate PO given.
--- NOTE | 2016-10-27 20:12 | PCM.PNPSY ---
Subjective Date of Service Oct 27, 2016 Subjective The patient reports, "I was going to fast but I ate." "Every day I feel better and stronger." She was oriented to 10/27/2016. She endorsed having a sense that "someone else is doing something. She was unable to clarify further but this apparently is an ongoing mild paranoia. Side effects: "I am feeling a little loss sometimes." She reported concern over pain management as all modalities have been ineffective. Sleep: 4.25 hours "that is good for me." Appetite: "Soaring" Suicidal and homicidal ideation: "None since here" Auditory hallucinations: Denies Visual hallucinations: "I can make things look different than they are. I can wake up a whole dining sarkar just talking." Other Psychotic Symptoms: As above Anxiety: 8/10, no objective signs of anxiety. Depression: 0/10 Mental Status Exam Appearance: Neat/well groomed Attitude: Pleasant, Cooperative Behavior: No unusual behavior Affect: Well Modulated/Appropriate Mood: Euthymic Thought Process/Associations: Goal Directed, Tangential Speech Production: Normal Speech Rate: Lags/Latency (mild at times) Speech Articulation: Normal Thought Content: Other (delusions as above) Danger to Self/Suicidal Ideati: None Danger to Others: None Hallucinations: Auditory (Denies), Visual (Endorses) Consciousness: Alert Orientation: Person, Place, Date, Situation Memory: Grossly Intact Estimate Intellectual Function: Average Attention/Concentration & Cogn: Impaired Insight: Limited Judgement: Limited Mental Health Plan The patient is a 80-year-old female who was admitted under DARLYN status due to grave disability with recent altered mental status. The patient reportedly has been seen through the emergency department twice within the past week. Initially treated for pneumonia, returned back to the facility due to a continuation of altered mental status. The patient reportedly is currently living in an assisted living program and per report the patient had significant difficulties with destructive behavior, confusion, disorientation, and threats of harm to others. She is currently on a voluntary status and appears to stabilize on her medications. She said no adverse behaviors on the unit. [place] AXIS I 1. Bipolar disorder, mixed type, by history, with psychotic features. 2. Cognitive disorder, not otherwise specified. 3. Delirium, not otherwise specified, resolved. AXIS II Deferred. AXIS III None. AXIS IV Stressors are noted for chronic mental health issues, disposition planning. AXIS V Global Assessment of Functioning current 35-40. Medications Carvedilol 12.5 mg twice daily Potassium chloride 10 mEq twice daily Ferrous gluconate 324 mg twice daily Furosemide 20 mg daily Calcium carbonate 500 mg daily Levothyroxine 50 g daily Ondansetron 4-8 mg as needed Atorvastatin 10 mg at bedtime Pantoprazole 40 mg daily Quetiapine 200 mg daily and 400 mg nightly with 50 mg every 4 hours when necessary agitation. Vitamin D 2000 units daily Treatments 1. The patient is encouraged to participate with group and milieu therapy. 2. The patient is encouraged to continue medications as prescribed. 3. The patient will meet with the treatment team on a daily basis to assess symptoms, side effects, and response to treatment. 4. The patient currently has a one-to-one as needed due to difficulties with ambulation. 5. The patient will return to the [facility] once coordinated with the intake division. Yefri Lackey MD Oct 27, 2016 20:12 Yefri Lackey MD Oct 27, 2016 20:12
--- NOTE | 2016-10-27 20:43 | NUR ---
Obs Evening shift Pt starting calling her after dinner, having rouble with dialing the phone she got peers and staff to dial for her. Telling her that their son was , hanging up on him, etc. called staff to request that she not call anymore tonight. Pt kept getting up walking w/out her walker or wheelchair, needing staff assistance. Difficulty w/ staff directions or explanations. Pt conts to believe that her cat is here w/ her, purring under neath her bed and continues to try and feed it at the end of her bed. Ok ADL's, Ok to poor meals
--- NOTE | 2016-10-27 21:32 | NUR ---
nursing note 3-11pm S)"I am doing better just because of all of you" O)pt pleasant on approach, social in dinning room with peers, watched TV for extended time this afternoon, ate dinner, no complaints, took medications except refused the cholesterol lowering medication "the dr told me I don't need to take it" used walker but had to be reminded, continues with fall risk with 1:1 sitter for safety A)compliant, took medications, no delusional thinking noted this evening P) possible DC tomorrow
--- NOTE | 2016-10-28 02:21 | NUR ---
Observations 1900 to 0700 Pt was with a one to one all evening. Pt first appeared asleep at 20:15 and was observed by a one to one as directed.
[2016-10-28 05:55] VITALS: BP 142/87; PULSE 95; RESP 16
[2016-10-28 06:37] VITALS: BP 142/87; PULSE 95; RESP 16
--- NOTE | 2016-10-28 06:49 | NUR ---
Observations 2300 to 0700 Pt had one to one throughout the night. Pt affect and mood was bright, talkative and a little confused after she awoke. Pt speech and eye contact was ok. Pt remained in her room in bed throughout the shift. Pt was social with staff when approached. Pt sat quietly in her wheelchair and/or rested in her room. Pt maintained behavior throughout the shift. Pt was polite, pleasant and cooperative. Pt was observed at all times throughout the shift as ordered due to being a fall risk. Pt is currently laying in bed talking with staff.
--- NOTE | 2016-10-28 07:10 | NUR ---
Nursing Note NOC Patient slept from [id number], 8.75 hours. In dayroom at 0500 for cold water and conversation. Has sitter staff for safety. Pleasant and more steady on her feet. More reality oriented and able to track a conversation. Spoke of her daughter, son, and grandson and [place]. No prns. Warm pack for comfort, neck. Likely discharge today.
[2016-10-28] MEDS: Calcium Carbonate (Oyster Shell) 500 mg Tablet PO SCH (08:21)
--- NOTE | 2016-10-28 15:16 | NUR ---
Nursing Note [id number] S: "I will take my medication, because I want to be functioning my best for my family at my [facility]". O: Patient feeding her cat. Multiple references made today about her son being murdered. A: Pt cooperative, delusional, auditory/visual hallucinations. P: Monitor for safety and response to treatment. Follow plan of care.
--- NOTE | 2016-10-28 16:00 | NUR ---
Interior Designer./ c.m. S./O.: spoke with Promise Logan @ [facility] @ [phone] who referred to assessment team prior to pt.'s discharge. She also wanted to keep pt.'s appt. with Dr. Sethi on [place]. @ 15:00. Armor Reconnaissance Specialist spoke with Willow [place], [place] coordinator ([phone]). She said that Luis Miguel from her office will come tomorrow at 10:00 am to assess pt. for admission back to the [facility]. If everything goes well, pt. can be discharged tomorrow back to the [facility]. Armor Reconnaissance Specialist gave all info to Dr. Ford for assessment also per Willow's request. A.: pt. is cooperative, pleasant, delusional at times. P.: monitor behavior, follow care plan.
[2016-10-28] MEDS: Pantoprazole 40 mg ER24 Tablet PO SCH (17:06)
--- NOTE | 2016-10-28 20:45 | PCM.PNPSY ---
Subjective Date of Service Oct 28, 2016 Subjective The patient is somewhat agitated today stating that she believes her son on 10/23/2016. She also reports frustration with people saying that she is schizophrenic or bipolar. She continued to perseverate on her son's welfare but did not want anyone to call the family to confirm that he was all right. She later came up to this short story writer and accused me of being a "murderer" but when told that this short story writer was her psychiatrist she stated, "oh, sorry, I thought you or someone else." Sleep: 8.75 hours Appetite: Okay Suicidal and homicidal ideation: Denies Auditory hallucinations: Denies Visual hallucinations: Denies Other Psychotic Symptoms: Paranoid delusions as above Anxiety: Appears anxious regarding son Depression: Unable to assess Mental Status Exam Appearance: Neat/well groomed, Unkept Attitude: Guarded, Uncooperative Behavior: No unusual behavior, Overtly anxious Affect: Well Modulated/Appropriate Mood: Euthymic, Irritable Thought Process/Associations: Loose, Tangential Speech Production: Abundant Speech Rate: Normal Speech Articulation: Normal Thought Content: Suspicious, Perseveration Danger to Self/Suicidal Ideati: None Danger to Others: None Hallucinations: Auditory (Denies), Visual (Denies) Consciousness: Alert Orientation: Person, Place, Situation Memory: Short Term Memory (Impaired) Estimate Intellectual Function: Average Attention/Concentration & Cogn: Impaired Insight: Limited Judgement: Limited Mental Health Plan The patient is a 80-year-old female who was admitted under DARLYN status due to grave disability with recent altered mental status. The patient reportedly has been seen through the emergency department twice within the past week. Initially treated for pneumonia, returned back to the facility due to a continuation of altered mental status. The patient reportedly is currently living in an assisted living program and per report the patient had significant difficulties with destructive behavior, confusion, disorientation, and threats of harm to others. She is currently on a voluntary status and had been stabilizing on the unit until today when she exhibited significant paranoia. The patient later calmed. If symptoms persist we will need to pursue possible medical causes of exacerbation. [place] AXIS I 1. Bipolar disorder, mixed type, by history, with psychotic features. 2. Cognitive disorder, not otherwise specified. 3. Delirium, not otherwise specified, resolved. AXIS II Deferred. AXIS III None. AXIS IV Stressors are noted for chronic mental health issues, disposition planning. AXIS V Global Assessment of Functioning current 25. Medications Carvedilol 12.5 mg twice daily Potassium chloride 10 mEq twice daily Ferrous gluconate 324 mg twice daily Furosemide 20 mg daily Calcium carbonate 500 mg daily Levothyroxine 50 g daily Ondansetron 4-8 mg as needed Atorvastatin 10 mg at bedtime Pantoprazole 40 mg daily Quetiapine 200 mg daily and 400 mg nightly with 50 mg every 4 hours when necessary agitation. Vitamin D 2000 units daily Treatments 1. The patient is encouraged to participate with group and milieu therapy. 2. The patient is encouraged to continue medications as prescribed. 3. The patient will meet with the treatment team on a daily basis to assess symptoms, side effects, and response to treatment. 4. The patient currently has a one-to-one as needed due to difficulties with ambulation. 5. If the patient's symptoms persist, we will need to look for medical cause of exacerbation as this is the most likely cause. 6. The patient will return to the [facility] once coordinated with the intake division. Yefri Lackey MD Oct 28, 2016 20:44
--- NOTE | 2016-10-28 22:45 | NUR ---
Nursing Note Ana Pt affect polite and pleasant. Pt has 1:1 outside of room for safety. Pt took all Seroquel HS meds but refused Coreg and atorvastatin. Pt having delusional thoughts r/t daughter being hurt by current and talking about going to sons who is still living. Pt still noted to be "feeding cat" in room. 1:[address] for safety, [facility] sellp, behavior and safety
--- NOTE | 2016-10-29 02:41 | NUR ---
Observations 1900 to 0700 Pt was with a one to one all evening. Pt first appeared asleep at 21:30 and was observed by a one to one as directed.
--- NOTE | 2016-10-29 06:58 | NUR ---
sleep 11p-7a 1:1 sitter for continued falls risk. Adequate sleep through the night with over 8 hours.
[2016-10-29] MEDS: Calcium Carbonate (Oyster Shell) 500 mg Tablet PO SCH (08:30)
--- NOTE | 2016-10-29 17:29 | NUR ---
Adoption Social Worker/Counselor: S/O: Patient slept 8+ hours last night as per staff. She denies S/I and H/I. She denies auditory and visual hallucinations. Depression is 0/10 and anxiety is 8/10. Spoke with Promise at [facility], faxed requested information in hopes of patient discharging tomorrow to [facility] in [place]. A: Patient is cooperative, euthymic, anxious, limited insight, poor judgment. P: Follow care plan coordinate out-patient providers.
[2016-10-29] MEDS: Pantoprazole 40 mg ER24 Tablet PO SCH (17:46)
--- NOTE | 2016-10-29 21:13 | PCM.PNPSY ---
Subjective Date of Service Oct 29, 2016 Subjective The patient reports that she is "okay today" and is oriented to 10/22/2016. She is unsure whether her son is and thinks that would be a good idea to call him. She states that although she would prefer to stay in the hospital she is ready to return to her assisted living. Sleep: 8+ hours, "good considering. Appetite: "Always good" Suicidal and homicidal ideation: Reports passive suicidal ideation particularly around having to leave the hospital, no plan and no intent. Denies homicidal ideation. Auditory hallucinations: Denies Visual hallucinations: Denies Other Psychotic Symptoms: Paranoid delusions as above Anxiety: 8/10 Depression: 0/10 Mental Status Exam Appearance: Neat/well groomed, Unkept Attitude: Pleasant, Cooperative Behavior: No unusual behavior, Overtly anxious Affect: Well Modulated/Appropriate Mood: Euthymic Thought Process/Associations: Goal Directed Speech Production: Normal Speech Rate: Normal Speech Articulation: Normal Thought Content: Suspicious Danger to Self/Suicidal Ideati: None Danger to Others: None Hallucinations: Auditory (Denies), Visual (Denies) Consciousness: Alert Orientation: Person, Place, Situation Memory: Short Term Memory (Impaired) Estimate Intellectual Function: Average Attention/Concentration & Cogn: Impaired Insight: Limited Judgement: Limited Mental Health Plan The patient is a 80-year-old female who was admitted under DARLYN status due to grave disability with recent altered mental status. The patient reportedly has been seen through the emergency department twice within the past week. Initially treated for pneumonia, returned back to the facility due to a continuation of altered mental status. The patient reportedly is currently living in an assisted living program and per report the patient had significant difficulties with destructive behavior, confusion, disorientation, and threats of harm to others. The patient appears to have returned to baseline and is pleasant though somewhat anxious about discharge. It appears that she may be discharging in the morning. [place] AXIS I 1. Bipolar disorder, mixed type, by history, with psychotic features. 2. Cognitive disorder, not otherwise specified. 3. Delirium, not otherwise specified, resolved. AXIS II Deferred. AXIS III None. AXIS IV Stressors are noted for chronic mental health issues, disposition planning. AXIS V Global Assessment of Functioning current 25. Medications Carvedilol 12.5 mg twice daily Potassium chloride 10 mEq twice daily Ferrous gluconate 324 mg twice daily Furosemide 20 mg daily Calcium carbonate 500 mg daily Levothyroxine 50 g daily Ondansetron 4-8 mg as needed Atorvastatin 10 mg at bedtime Pantoprazole 40 mg daily Quetiapine 200 mg daily and 400 mg nightly with 50 mg every 4 hours when necessary agitation. Vitamin D 2000 units daily Treatments 1. The patient is encouraged to participate with group and milieu therapy. 2. The patient is encouraged to continue medications as prescribed. 3. The patient will meet with the treatment team on a daily basis to assess symptoms, side effects, and response to treatment. 4. The patient currently has a one-to-one as needed due to difficulties with ambulation. 5. The patient will return to the [facility] once coordinated with the intake division. Yefri Lackey MD Oct 29, 2016 21:13
--- NOTE | 2016-10-30 02:08 | NUR ---
Nursing Noc Patient mentation unchanged from previous assessments. Patient concerned about son and whether he will wake up in time for work early in the am. Pt put at ease without difficulty by verbal reassurance. Pt up independently with SBA this shift using FWW correctly. 10/12 sitter at bedside r/t fall risk. Possible discharge this am to [facility].
[2016-10-30] MEDS: Calcium Carbonate (Oyster Shell) 500 mg Tablet PO SCH (08:39)
[2016-10-30 11:00] VITALS: BP 135/70; PULSE 71; RESP 16
[2016-10-30] MEDS ORDERED: hydrOXYzine Pamoate 25 mg Capsule PO PRN ×2 (12:30→17:30)
--- NOTE | 2016-10-30 14:22 | NUR ---
Nursing Day Shift- S- "Well... good morning honey!" O- Pt. had poor sleep last night per report. She appeared asleep at the start of the day shift. Pt. was dressed and groomed for breakfast in the DR with staff assistance. Pt. eat 50% breakfast then 60% lunch. She has remained calm and appropriate. Pt. appears to be using her walker with a slow but steady gait. She is no longer wearing dark sunglasses. A- Pt's mood appears less labile since admission. Increased appetite and fluid intake. Pleasant confusion continues. P- Cont. BHTP. Awaiting transfer back to Pt's Residential Facility today.
[2016-10-30] MEDS: Pantoprazole 40 mg ER24 Tablet PO SCH (17:27)
--- NOTE | 2016-10-30 17:47 | NUR ---
Observations [id number] Pt was sitting in her room upon first interaction. She had a 1x1 sitter for the duration of the shift. Pt appears to be eating more food and is in brighter spirits. Pt walked the halls in the afternoon for exercise. She did not attend group. Pt was pleasant with staff and peers. She was observed every 15 minutes of shift as directed.
--- NOTE | 2016-10-30 22:51 | NUR ---
Nursing Notes [id number] S: "You should be sad, not for me, because of my son, he ". O: Patient continues to have delusions that her son , despite attempts by staff and family to reassure patient that he is alive and well. A: Restless, delusions, cooperative, pleasant. P: Monitor for response to treatment/medications. Q15 min checks for safety. Follow plan of care.
--- NOTE | 2016-10-30 23:53 | PCM.PNPSY ---
Subjective Date of Service Oct 30, 2016 Subjective The patient was concerned while watching the television that [place] 2pm in the afternoon here. The patient was still concerned that her son might be but had not called her daughter to ask if that had happened, "I'm kind of between the [place]." The patient states that she is ready to return to her assisted living. Sleep: "good" Appetite: "Increase day by day" Suicidal and homicidal ideation: "gone away" No HI. Auditory hallucinations: Denies Visual hallucinations: Denies Other Psychotic Symptoms: Paranoid delusions as above Anxiety: "anxious about family" Depression: "only in so much as my family" Mental Status Exam Appearance: Neat/well groomed, Unkept Attitude: Pleasant, Cooperative Behavior: No unusual behavior, Overtly anxious Affect: Well Modulated/Appropriate Mood: Euthymic Thought Process/Associations: Goal Directed Speech Production: Normal Speech Rate: Normal Speech Articulation: Normal Thought Content: Suspicious Danger to Self/Suicidal Ideati: None Danger to Others: None Hallucinations: Auditory (Denies), Visual (Denies) Consciousness: Alert Orientation: Person, Place, Situation Memory: Short Term Memory (Impaired) Estimate Intellectual Function: Average Attention/Concentration & Cogn: Impaired Insight: Limited Judgement: Limited Mental Health Plan The patient is a 80-year-old female who was admitted under DARLYN status due to grave disability with recent altered mental status. The patient reportedly has been seen through the emergency department twice within the past week. Initially treated for pneumonia, returned back to the facility due to a continuation of altered mental status. The patient reportedly is currently living in an assisted living program and per report the patient had significant difficulties with destructive behavior, confusion, disorientation, and threats of harm to others. The patient appears to have returned to baseline and is pleasant though somewhat anxious about discharge. It appears that she may be discharging in the morning. [place] AXIS I 1. Bipolar disorder, mixed type, by history, with psychotic features. 2. Cognitive disorder, not otherwise specified. 3. Delirium, not otherwise specified, resolved. AXIS II Deferred. AXIS III None. AXIS IV Stressors are noted for chronic mental health issues, disposition planning. AXIS V Global Assessment of Functioning current 35. Medications Carvedilol 12.5 mg twice daily Potassium chloride 10 mEq twice daily Ferrous gluconate 324 mg twice daily Furosemide 20 mg daily Calcium carbonate 500 mg daily Levothyroxine 50 g daily Ondansetron 4-8 mg as needed Atorvastatin 10 mg at bedtime Pantoprazole 40 mg daily Quetiapine 200 mg daily and 400 mg nightly. Vitamin D 2000 units daily Treatments 1. The patient is encouraged to participate with group and milieu therapy. 2. The patient is encouraged to continue medications as prescribed. 3. The patient will meet with the treatment team on a daily basis to assess symptoms, side effects, and response to treatment. 4. The patient has been ambulating with the assistance of a walker and will discontinue 1:1. 5. The patient will return to the [facility] once coordinated with the intake division. Yefri Lackey MD Oct 30, 2016 19:33
--- NOTE | 2016-10-31 05:30 | NUR ---
Nursing Noc Pt mentation remains unchanged from previous shifts. 1:1 sitter in use for safety, FWW used when up with reminder from staff. Continuing to monitor sleep times, safety, mood, behavior, emotional state. CP
--- NOTE | 2016-10-31 05:31 | NUR ---
Pt up and down through shift. Confused but pleasant. Asking about if today was her last day?, and thinking her son Luis Miguel had disappeared and thinking her had done away with him. Asleep [id number]. Pt observed every 15 minutes as ordered.
[2016-10-31] MEDS: Calcium Carbonate (Oyster Shell) 500 mg Tablet PO SCH (10:01)
--- NOTE | 2016-10-31 10:12 | PCM.DIMED ---
Discharge Instructions Date of Service Oct 31, 2016 Dates of Hospitalization Oct 16, 2016 at 14:50 Discharge Diagnosis Discharge Diagnosis AXIS I 1. Bipolar disorder, mixed type, by history, with psychotic features. 2. Cognitive disorder, not otherwise specified. 3. Delirium, not otherwise specified, resolved. AXIS II Deferred. AXIS III Hypothyroidism Arthritis Congestive heart failure Hyperlipidemia, Hypertension by report AXIS IV Stressors are noted for chronic mental health issues, disposition planning. AXIS V Global Assessment of Functioning current 45. Diet Low fat, Low Sodium, Heart Healthy Activity No restrictions, Other (per PT, OT, Speech eval.) Patient Instructions Should you have any thoughts of harming yourself or others, please call the crisis line, your provider, 911, or go to the nearest Emergency Department. Do not change or discontinue your medications without discussing with your provider. You have been given a prescription for your medication Follow-up plan Follow up with provider per director case notation. Patient needs PT, OT, and speech evaluation. Yefri Lackey MD Oct 31, 2016 10:12
[2016-10-31] MEDS ORDERED: FEG324 PO (11:18)
[2016-10-31] MEDS ORDERED: ALBU90AE IH (11:18)
[2016-10-31] MEDS ORDERED: OMEG500C3 PO (11:18)
[2016-10-31] MEDS ORDERED: CHOL200047 PO (11:18)
[2016-10-31] MEDS ORDERED: FUR20 PO (11:18)
[2016-10-31] MEDS ORDERED: LEVO50TA6 PO (11:19)
[2016-10-31] MEDS ORDERED: PANT40TA3 PO (11:19)
[2016-10-31] MEDS ORDERED: Al Hydrox/Mg Hydrox/Simeth PO (11:19)
[2016-10-31] MEDS ORDERED: Acetaminophen PO (11:19)
[2016-10-31] MEDS ORDERED: Calcium Carbonate PO (11:19)
[2016-10-31] MEDS ORDERED: ATOR10TA66 PO (11:19)
[2016-10-31] MEDS ORDERED: QUET100T69 PO ×2 (11:19)
[2016-10-31] MEDS ORDERED: ONDA4TAB12 PO (11:19)
[2016-10-31] MEDS ORDERED: CARV12.52 PO (11:19)
[2016-10-31] MEDS ORDERED: MAGN800O PO (11:19)
[2016-10-31] MEDS ORDERED: ALBU2.5V4 NEB (11:19)
[2016-10-31] MEDS ORDERED: POTA10TA12 PO (11:19)
[2016-10-31 11:50] VITALS: BP 131/66; PULSE 67; RESP 16
--- NOTE | 2016-10-31 13:00 | NUR ---
Nursing:Day shift and Discharge: O: Pt is out on unit. Responds readily and pleasantly on approach. Alert and generally oriented. No psychotic behavior, tqalking to car, talking out loud to daughters (as she had exhibited at time of admission) noted. She was able to pack her belongings, change her clothes form [facility] scrubs, and sign all discharge papers. Some unmet outcomes still in place at time of discharge. Nutrition; Ate both meals. Skin assessment: No bruises noted except: slight yellowing of skin from previous bruise behind right ear AND a bruise posterior lower back which is old with yellowish brown color. Ambulates with walker. Gait steady. Has not had 1:1 observation throughout this shift. Pt left unit at 1245 accompanied by instructor bus trolley and taxi. Discharge complete. Addendum: 10/31/16 at 1725 by CATARINA MENDOZA RN Clarification of meaning of statement above: Sentence above should read: No psychotic behavior such as talking to cat and talking out loud to daughters noted (the way she was behaving at time of admission).
[2016-10-31] MEDS ORDERED: HYDR-3797 PO (13:36)
--- NOTE | 2016-10-31 14:22 | NUR ---
Nursing: Patient returned. At 1420, pt arrived back on unit per [employer] Operator from [facility]. She had not gotten out of the cab at [facility]. She is alert. Responsive. Smiling. no apparent distress. Is admitted to Room 231 bed 2. No complaints. Addendum: 10/31/16 at 1938 by CATARINA MENDOZA RN Nursing: Janene has been mostly resting quietly on her bed since return. She is drinking ensure and other fluids but is eating minimally. She phoned her daughter this evening. And was able to remember the number for her son. Continues to have a steady gait and is ambulating independently to BR. Able to toilet self. Requested a shower but has not had one yet today. A: Continue to support Janene toward discharge.
[2016-10-31] MEDS: Pantoprazole 40 mg ER24 Tablet PO SCH (17:15)
--- NOTE | 2016-10-31 19:50 | PCM.PNPSY ---
Subjective Date of Service Oct 31, 2016 Subjective Patient is pleasant and cooperative. Patient has been ambulating well without one-to-one staffing. She states that she is still concerned about her son but otherwise is doing well. We discussed returning to [facility] today and although the patient would prefer to stay in the hospital, she was ready to return "home". She denied side effects or medical complaints. Sleep: 8.25+ hours. Appetite: "Real good" Suicidal and homicidal ideation: Denies. Auditory hallucinations: Denies. Visual hallucinations: Denies. Other Psychotic Symptoms: Concerned that her son may be . Anxiety: About returning to [facility]. Depression: Denies. Mental Status Exam Vital Signs Vital Signs Date Time Temp Pulse Resp B/P Pulse Ox O2 Delivery O2 Flow Rate FiO2 10/31/16 11:50 36.2 67 16 131/66 Appearance: Neat/well groomed Attitude: Pleasant, Cooperative Behavior: No unusual behavior Affect: Well Modulated/Appropriate Mood: Euthymic Thought Process/Associations: Goal Directed Speech Production: Normal Speech Rate: Normal Speech Articulation: Normal Thought Content: Suspicious Danger to Self/Suicidal Ideati: None Danger to Others: None Delusions: Paranoid (Endorses, concerned that her son may be .) Hallucinations: Auditory (Denies), Visual (Denies) Consciousness: Alert Orientation: Person, Place ([facility]), Date (10/22/2016.), Situation Memory: Short Term Memory (Impaired) Estimate Intellectual Function: Average Attention/Concentration & Cogn: Impaired Insight: Limited Judgement: Limited Mental Health Plan The patient is a 80-year-old female who was admitted under DARLYN status due to grave disability with recent altered mental status. The patient reportedly is currently living in an assisted living program and per report the patient had significant difficulties with destructive behavior, confusion, disorientation, and threats of harm to others. The patient had reportedly been seen through the emergency department twice in the week preceding admission. She was initially treated for pneumonia and returned to her facility. She was sent back to the hospital due to a continuation of altered mental status. The patient appears to have returned to baseline and is pleasant though somewhat anxious about discharge. Although initially scheduled for discharge today, there appears to been some problem with paperwork and so she may be discharging in the morning or early next week. [place] AXIS I 1. Bipolar disorder, mixed type, by history, with psychotic features. 2. Cognitive disorder, not otherwise specified. 3. Delirium, not otherwise specified, resolved. AXIS II Deferred. AXIS III None. AXIS IV Stressors are noted for chronic mental health issues, disposition planning. AXIS V Global Assessment of Functioning current 35. Medications Carvedilol 12.5 mg twice daily Potassium chloride 10 mEq twice daily Ferrous gluconate 324 mg twice daily Furosemide 20 mg daily Calcium carbonate 500 mg daily Levothyroxine 50 g daily Ondansetron 4-8 mg as needed Atorvastatin 10 mg at bedtime Pantoprazole 40 mg daily Quetiapine 200 mg daily and 400 mg nightly. Vitamin D 2000 units daily Hydroxyzine 25 mg every 8 hours when necessary anxiety Treatments 1. The patient is encouraged to participate with group and milieu therapy. 2. The patient is encouraged to continue medications as prescribed. 3. The patient will meet with the treatment team on a daily basis to assess symptoms, side effects, and response to treatment. 4. The patient has been ambulating with the assistance of a walker and does not need a one-to-one. 5. The patient will return to the [facility] once coordinated with the intake division. Yefri Lackey MD Oct 31, 2016 19:50
--- NOTE | 2016-10-31 21:26 | NUR ---
[employer] Van Owner Operator/Counselor: S/O: Patient slept 8.25+ hours last night as per staff. She denies S/I and H/I. She denies auditory and visual hallucinations. Depression is 0/10 and anxiety is 6/10. Spoke with Promise at [facility], faxed requested information in hopes of patient discharging to [facility] in [place]. Faxed a hard copy of prescriptions, nurse care plan, patient care treatment summary, medication list, nurse's notes, and discharge instructions to Phoebe at [facility]. A: Patient is cooperative, euthymic, anxious, limited insight, poor judgment. P: Follow care plan coordinate out-patient providers.
--- NOTE | 2016-10-31 21:31 | NUR ---
Observations 0900 to 2130 Pt affect and mood was flat, isolative and bright when engaged. Pt speech and eye contact was ok. Pt remained in her room in bed throughout the shift. Pt was social with staff when approached. Pt sat quietly by herself and/or rested in her room. Pt attended meals in D.R. and ate 50% of her meals. Pt also drank an ensure for lunch and dinner. Pt maintained behavior throughout the shift. Pt was polite, pleasant and cooperative. Pt was observed every 15 min as ordered. Pt is currently laying in bed talking with staff.
--- NOTE | 2016-11-01 05:20 | NUR ---
Pt pleasant through shift. Asleep 2230. Pt observed every 15 minutes as ordered.
--- NOTE | 2016-11-01 05:55 | NUR ---
Nursing Note NOC Patient slept 8.25+ hours with no awake times this shift. Pleasant and clear. Present in dayroom with peers. Vistaril PRN 50 mg at 2140. Room checks completed every 15 minutes. Addendum: 11/01/16 at 2043 by VILMA DUMONT RN LE: to correct typographical error: Pt was given 25 mg of PO Vistaril at 2140.
[2016-11-01] MEDS: Calcium Carbonate (Oyster Shell) 500 mg Tablet PO SCH (08:30)
--- NOTE | 2016-11-01 11:02 | NUR ---
Nursing Dayshift: S: "Can you get me my breakfast?" O: Patient up for breakfast in a pleasant mood. Ambulating with a slow steady gait with the use of a FWW. Social with select peers especially those of her age group. Resting in bed for a short while after breakfast. At present sitting in her room with her room mate. VSS. A: Calm. Pleasant. P: CPOC. Monitor mood and behavior.
--- NOTE | 2016-11-01 11:44 | DIS ---
[address] [address] DISCHARGE SUMMARY PATIENT: YANETH MURPHY : 1935 MR#: [id number] ADMIT: 10/16/2016 JOB ID: [id number] DIS: 10/16/2016 HISTORY OF PRESENT ILLNESS: The patient is a 80-year-old lady hospitalized voluntarily on this unit on October 16, 2016. She carries a diagnosis of bipolar one manic with psychosis, with the possibility of dementia with delusions and acute behavioral disturbance. Medical issues include GERD, fall risk, COPD, hypertension, hyperlipidemia, on vitamin D replacement, hypothyroidism, and on iron replacement. The patient seen and discussed with the nurse and the city planner. Apparently the patient was to be transferred to [facility] yesterday. I am looking at what appeared to be initially like a discharge summary and then discharge instructions dictated by Dr. Yefri Lackey, which clearly indicate that once the discharge planning is done and coordination is made with the intake division, the patient was to be discharged to the [facility] facility. According to the staff, the patient is much improved. No more spontaneously delusional, no hallucinatory behavior. No verbalizations of intent to harm herself or others. Cooperative with care. Good sleep. Good intake. She is on Seroquel 200 mg in the morning and 400 mg at night and verbalizes significant benefit with it. Apparently at one time they were insisting that she would be 24 hours without a sitter before she would go to [facility], which is apparently a residential. According to the staff she has not had a fall for at least the last two weeks. She did require a Vistaril p.r.n. in the evening and apparently Dr. Lackey has printed out all the discharge prescriptions that are needed for the patient, so we are going to discharge her. DISCHARGE DIAGNOSES: [place] I: 1. Bipolar one mixed with psychotic features. 2. Cognitive disorder, not otherwise specified. [place] II: Deferred. [place] III: 1. Hypothyroidism. 2. Arthritis. 3. Congestive heart failure. 4. Hypertension. 5. Hyperlipidemia. [place] IV: Deferred. [place] V: 45 on admission; about 50 at this point. PLAN: We will discharge the patient today once all the discharge details are worked out by the city planner.
[2016-11-01 12:35] VITALS: BP 122/72; PULSE 86; RESP 16
--- NOTE | 2016-11-01 15:42 | NUR ---
Nursing Discharge Note: Patient cooperative with transfer process. [facility] states having received all paperwork necessary for admit. Belongings accounted for and with patient. Prescriptions faxed to [facility]. Patient denies harmful thoughts and hallucinations at this time. Left the unit at 1540.
--- NOTE | 2016-11-01 16:33 | NUR ---
Emergency Room Registered Nurse./ c.m. S.:"Good morning. I just don't know what's going on... Yes, medications are helping." O.: met with pt. and MD together in pt.'s room. She slept "good" last night. She denied SI/HI, denied AH, denied depression. She said that she was eating well. She was walking with her walker comfortably and talking to selective peers. She was wondering about her discharge. Field Crop Harvest Worker left a message for Promise Soliz @ [facility] @ [phone] regarding a process of possible discharge today but didn't get anything in return. A.: pt. is cooperative, pleasant, quiet. P.: monitor behavior, follow care plan.
== END 2016-11-01 15:40 | DRG 885 ==
LOC: EDBD 14:24 → SED 14:24 → MHC 10-16 14:50
PROVIDERS: ADMIT Psychiatry & Neurology Psychiatry; ATTEND Psychiatry & Neurology Psychiatry
DX: F31.64 Bipolar disorder, current episode mixed, severe, with psychotic features (principal); F05 Delirium due to known physiological condition; F09 Unspecified mental disorder due to known physiological condition; F03.90 Unspecified dementia, unspecified severity, without behavioral disturbance, psychotic disturbance, mood disturbance, and anxiety; T43.596A Underdosing of other antipsychotics and neuroleptics, initial encounter; Z91.128 Patient's intentional underdosing of medication regimen for other reason; Y92.199 Unspecified place in other specified residential institution as the place of occurrence of the external cause; I10 Essential (primary) hypertension; E78.5 Hyperlipidemia, unspecified; Z86.19 Personal history of other infectious and parasitic diseases; E03.9 Hypothyroidism, unspecified